=== PATIENT | male | born 1940 | race Caucasian/White ===

== ENCOUNTER 2023-09-06 14:07 | Emergency (ER) | payer OTHER, SELFPAY ==
[2023-09-06 14:09] VITALS: BP 182/90
[2023-09-06 14:40] LABS: % Basophils 0.6 % (0-2); % Eosinophils 2.6 % (0-6); % Immature Granulocytes 0.4 % (0-0.5); % Lymphocytes 26.7 % (20.5-51.1); % Monocytes 7.4 % (1.7-9.3); % Neutrophils 62.3 % (42.2-75.2); Absolute Eosinophils 0.2 10^3/uL (0-0.7); Absolute Lymphocytes 1.8 10^3/uL (1.2-3.4); Absolute Monocytes 0.5 10^3/uL (0.1-0.6); Absolute Neutrophils 4.3 10^3/uL (1.4-6.5); Hematocrit 44.1 % (39.0-52.0); Hemoglobin 15.6 g/dL (13.0-18.0); Mean Corp Hgb Conc. 35.4 g/dL (33.0-37.0); Mean Corpuscular Hgb 30.8 pg (27.0-31.0); Mean Corpuscular Volume 87.2 fL (80.0-94.0); Nucleated Red Blood Cells % 0 % (-); Platelet Count 137 10^3/uL (130-400); Red Blood Cell Count 5.06 10^6/uL (4.70-6.10); Red Cell Dist. Width 12.3 % (11.5-14.5); White Blood Cell Count 6.9 10^3/uL (4.8-10.8)
[2023-09-06 14:46] LABS: ALT (SGPT) 28 U/L (0-50); AST (SGOT) 26 U/L (17-59); Albumin 4.2 g/dl (3.5-5.0); Alkaline Phosphatase 85 U/L (38-126); Blood Urea Nitrogen 17 mg/dl (9-20); Calcium 9.7 mg/dl (8.4-10.2); Carbon Dioxide 27 mmol/L (22-30); Chloride 102 mmol/L (98-107); Glucose 146 mg/dl (70-99); PT 15.3 Sec (11.4-14.6); Potassium 4.6 mmol/L (3.5-5.1); Sodium 138 mmol/L (135-145); Total Bilirubin 1.6 mg/dl (0.2-1.3); Total Protein 6.4 g/dl (6.3-8.2); eGFR > 60.00
[2023-09-06 14:58] LABS: Troponin I < 0.012 ng/ml
--- NOTE | 2023-09-06 17:16 | ED.GENMED ---
History of Present Illness
General
Chief Complaint: Heart Rate Problem
Time Seen by Provider: 09/06/23 17:16
Travel History
Have you had any contact with someone who has COVID-19?: No
Do you have any symptoms of coronavirus? Fever > 100 degrees, chills, cough, shortness of breath, sore throat, loss of taste or smell, muscle aches, or headache?: No
History of Present Illness
History of Present Illness:
HPI: 8d of anxious feeling - then checks his pulse and feels it to be irregular at times. Saw Dr. Felix a week ago - was felt to be PVCs. Feels different than AFib. One of his main symptom and concern is his inability to sleep. He cares
for his with dementia at home.
EXAM:
GENERAL: Well appearing in no distress
HEENT: Moist oral mucosa
CARDIOVASCULAR: No murmurs, normal heart rate, regular rhythm but there is frequent ectopy, No chest wall tenderness
PULMONARY: No respiratory distress, breath sounds are clear and equal
ABDOMEN: Soft with no peritoneal signs, no tenderness
NEUROLOGIC: Excellent strength all extremities, no coordination deficits
PSYCHIATRIC: Appropriate mental status, normal insight and judgement
EXTREMITIES: Nontender, no edema, moves all extremities equally
SKIN: No rash, no lesions
TIME OF INITIAL ENCOUNTER: 5:30 PM
NUMBER AND COMPLEXITY OF PROBLEMS ADDRESSED AT THE ENCOUNTER
� Chronic conditions affecting care: CAD with coronary stent, A-fib, high blood pressure, hyperlipidemia, has had KAETON
� Acute Exacerbation and/or Progression of Chronic Illness: This is an acute but recurring problem
� Differential Diagnosis includes: Recurrence of A-fib, electrolyte abnormality, PACs/PVCs, high-grade AV block
AMOUNT AND/OR COMPLEXITY OF DATA TO BE REVIEWED AND ANALYZED
� I performed an independent evaluation of and my interpretation is:
EKG: Sinus sinus 60, leftward axis deviation, no acute ST abnormality
CT:
X-rays:
Laboratory Studies: CBC, chemistries other than total bili are unremarkable, troponin negative
Other:
� Review of other/old records: I reviewed records, the patient had an ablation in February 2022
� Clinical information was obtained by an independent historian: Spoke to son at bedside
� Prescriptions/Medications Considered but not given:
� Further testing considered but not performed:
RISK OF COMPLICATIONS AND/OR MORBIDITY OR MORTALITY OF PATIENT MANAGEMENT
� Social determinants of health affecting care: Lives at home, cares for his with dementia
� Discussion with other providers: I notified Dr. Rendon of the patient's presentation
� Escalation of care including admission/observation vs risk of discharge considered: His EKG is sinus. He is not in A-fib. Regarding sleep I also recommended that he try [id number] doxylamine. He does have frequent
atrial ectopy on the monitor but is well-appearing at time of discharge.
Past History
Past History
ED Past Medical History: Arrthythmia, CAD, HTN, Hypercholesterolemia and Other (Depression)
Social History
Tobacco: Non-smoker
Phy Exam
Physical Exam
Physical Exam:
See HPI
Course
Orders/Labs/Results
Orders:
Orders
09/06/23
Electrocardiogram (*1) Stat
Comment: DONE
09/06/23 14:21
Complete Blood Count/With Diff Urgent
Comprehensive Metabolic Panel Urgent
PT/INR [Prothrombin Time] Urgent
Troponin I Urgent
Abnormal Lab Results
09/06/23
14:21
PT 15.3 H Sec
(11.4-14.6)
Glucose 146 H mg/dl
(70-99)
Total Bilirubin 1.6 H mg/dl
(0.2-1.3)
09/06/23 14:21
09/06/23 14:21
Vital Signs
Initial and Last Documented VS:
Initial Vital Signs
Temp Pulse Resp BP Pulse Ox
98.4 F 62 18 182/90 98
09/06/23 14:09/06/23 14:09/06/23 14:09/06/23 14:09/06/23 14:09
Last Documented Vital Signs
Temp Pulse Resp BP Pulse Ox
98.4 F 62 18 182/90 98
09/06/23 14:09 09/06/23 14:09/06/23 14:09/06/23 14:09/06/23 14:09
*Critical Care Note
Total Time (30-74mins, 75-104mins- exclusive of procedures): Not Applicable
ED Attending Note
-
Portions of this chart may have been created with voice recognition software.� Occasional wrong word or��sound alike� substitutions may have occurred due to the inherent limitations of voice recognition software.
Discharge Plan
Departure
Patient Disposition: Home (Routine Discharge)
Date of Disposition: 09/06/23
Time of Disposition: 17:49
Patient with high blood pressure during this ER visit?: Yes
Discharge Problem:
Premature atrial contraction
Instructions: Palpitations (DC)
Prescriptions:
No Action
metoprolol tartrate 50 MG tablet
50 mg PO BID
cholecalciferol (vitamin D3) 2,000 UNITS tablet
2,000 units PO DAILY
atorvastatin 10 mg Tablet
20 mg PO HS
cyanocobalamin (vitamin B-12) [Vitamin B-12] 500 mcg Tablet
500 mcg PO DAILY
Eliquis 5 mg Tablet
5 mg PO BID
Activity Restrictions/Additional Instructions:
I notified the bath house attendant on-call, Dr. Fernandez said that he will try to get you in for reassessment soon. Regarding sleep, I recommend that you try [id number] Unisom�the kind with doxylamine as the active ingredient.
Interventions
Interventions:
*Risk Screen - Suicide Last Done: 09/06/23 14:09
*General Assessment Last Done: 09/06/23 14:09
*Neglect/Abuse Screening Last Done: 09/06/23 14:09
*ED COVID-19 Vaccine History Last Done: 09/06/23 14:09
Discharge Date and Time
Print Language: GERMAN
[2023-09-06 18:04] VITALS: BP 163/86
== END 2023-09-06 18:23 | disposition home or self-care (01) ==
LOC: EMR 14:07
PROVIDERS: Student in an Organized Health Care Education/Training Program; EMERGENCY PHYSICIAN Emergency Medicine
DX: I49.1 Atrial premature depolarization (principal); I25.10 Atherosclerotic heart disease of native coronary artery without angina pectoris; I48.91 Unspecified atrial fibrillation; I10 Essential (primary) hypertension; E78.00 Pure hypercholesterolemia, unspecified; F32.A Depression, unspecified; Z79.01 Long term (current) use of anticoagulants
CPT/HCPCS: 99283; 80053; 84484; 85025; 85610; 93005

== ENCOUNTER → 2023-10-23 14:06 | Outpatient (REF) | payer OTHER, SELFPAY | LOC: HWRCS 14:06 | PROVIDERS: ATTENDING PHYSICIAN Nurse Practitioner; FAMILY PHYSICIAN Nurse Practitioner Gerontology | DX: I10 Essential (primary) hypertension (principal); R00.2 Palpitations | CPT/HCPCS: 93306 ==

== ENCOUNTER 2024-06-15 22:46 | Emergency (ER) | payer OTHER, SELFPAY ==
[2024-06-15 22:56] VITALS: BP 160/90
[2024-06-16 02:48] VITALS: BP 153/73; BMI 34.1
[2024-06-16 03:00] VITALS: BP 137/79
--- NOTE | 2024-06-16 03:06 | ED.GENMED ---
History of Present Illness
General
Chief Complaint: Cough
Source: patient
Exam Limitations: none
Time Seen by Provider: 06/16/24 03:02
History of Present Illness
History of Present Illness:
See MDM
Past History
Past History
ED Past Medical History: Arrthythmia, CAD, HTN, Hypercholesterolemia and Other (Depression)
ED Past Surgical History: Cardiac (Ablation)
Social History
Tobacco: Non-smoker
Phy Exam
Physical Exam
Physical Exam:
See MDM
Course
Orders/Labs/Results
Orders:
Orders
06/15/24 22:59
Chest [CR Chest - 2 Views ] Urgent
Comment:
Reason For Exam: COUGH WITH LEFT LOWER RIB PAIN
06/16/24 02:57
COVID-19 Antigen Urgent
Source: Nasal Swab
Influenza A+B Rapid Molecular Urgent
KUSH Source: Nasal Swab
Specimen Description:
06/16/24 03:05
Azithromycin [Zithromax] 500 mg PO NOW STA
Dexamethasone Pf [Decadron] 10 mg PO NOW STA
Ipratropium/Albuterol Sulfate [Duoneb] 3 ml INH R NOW STA
06/16/24 03:06
Electrocardiogram (*1) Urgent
Reason for Study: Shortness of Breath
EKG- Treatment ONCE
06/16/24 03:14
Complete Blood Count/With Diff Urgent
Comprehensive Metabolic Panel Urgent
06/16/24 03:15
Troponin I Urgent
Abnormal Lab Results
06/16/24
03:14
Plt Count 128 L 10^3/uL
(130-400)
Absolute Neuts (auto) 6.7 H 10^3/uL
(1.4-6.5)
Absolute Lymphs (auto) 0.8 L 10^3/uL
(1.2-3.4)
Absolute Monos (auto) 0.8 H 10^3/uL
(0.1-0.6)
Neutrophils % 80.2 H %
(42.2-75.2)
Lymphocytes % 9.1 L %
(20.5-51.1)
Glucose 136 H mg/dl
(70-99)
Total Bilirubin 2.3 H mg/dl
(0.2-1.3)
06/16/24 03:14
06/16/24 03:14
Vital Signs
Initial and Last Documented VS:
Initial Vital Signs
Temp Pulse Resp BP Pulse Ox
98.2 F 98 22 160/90 98
06/15/24 22:56 06/15/24 22:56 06/15/24 22:56 06/15/24 22:56 06/15/24 22:56
Last Documented Vital Signs
Temp Pulse Resp BP Pulse Ox
98.2 F 91 18 137/79 97
06/15/24 22:56 06/16/24 04:00 06/16/24 04:00 06/16/24 03:00 06/16/24 04:00
MDM/Problems Addressed
Differential Diagnosis Includes:
HPI and MDM Narrative:
84-year-old male presenting with cough and shortness of breath since yesterday. This is associated with mild wheeze. He denies sick contacts. On exam, he does have a slight expiratory wheeze on exam. Chest x-ray was done prior to my exam and
appears clear. Given his age and complaint, will obtain EKG and basic blood work. Will give DuoNeb and Decadron
Physical exam
General: Well appearing and non-toxic
HEENT: protecting airway
Neck: appears supple
CV: No evidence of cyanosis. Regular rate and rhythm
Resp: No accessory muscle use. Slight expiratory wheeze
Abd: Non-distended
Extremities: No deformities
Neuro: alert
Psych: Normal affect
Skin: Intact
Problems Addressed including Acute and Chronic Conditions affecting care:
1. Bronchitis
Acuity: acute
Prognosis: stable
Details: Will start steroids and DuoNebs.
2. Shortness of breath
Acuity: acute
Prognosis: stable
Details: Will obtain EKG and troponin
Updates
On reevaluation, patient sleeping comfortably. Chest x-ray clear. EKG and troponin negative. Patient found to have a flu. Patient is in the Tamiflu window and wants to give a trial
Differential Diagnosis (but not limited to): Bronchitis, pneumonia, viral syndrome
Testing considered: D-dimer
Drug therapy (if applicable): OTC meds, please see d/c instruction regarding Rx drugs
Amount and/or Complexity of Data Reviewed
Clinical info obtained from: Patient
External data reviewed: N/A
Labs I independently reviewed (but not limited to): Troponin normal
Radiology: X-ray independently reviewed: Chest x-ray clear
Pulse Ox: not hypoxic
EKG independently reviewed: N/A
[employer]: Sinus rhythm
Critical Care: N/A
Risk of Complication:
Social Determinants of health: Good social support
Discussed with other providers: N/A
Escalation of Care includes Admit/Obs: After being observed in the Emergency Department, pt stable for discharge.
Occasional wrong word or 'sound a like' substitutions may have occurred due to the inherent limitations of voice recognition software. Read the chart carefully and recognize, using context, where substitutions have occurred.
*Critical Care Note
Total Time (30-74mins, 75-104mins- exclusive of procedures): Not Applicable
ED Attending Note
-
Portions of this chart may have been created with voice recognition software.� Occasional wrong word or��sound alike� substitutions may have occurred due to the inherent limitations of voice recognition software.
Discharge Plan
Departure
Patient Disposition: Home (Routine Discharge)
Date of Disposition: 06/16/24
Time of Disposition: 05:30
Patient with high blood pressure during this ER visit?: Yes
Discharge Problem:
Influenza A
Instructions: Flu in adults - Discharge instructions, BLOOD PRESSURE
Prescriptions:
New
albuterol sulfate 90 mcg/actuation HFA aerosol inhaler
2 puff inhalation Q6H PRN (Reason: shortness of breath or wheezing) Qty: 8.5 0RF
oseltamivir [Tamiflu] 75 mg capsule
75 mg PO BID 5 Days Qty: 10 0RF
No Action
metoprolol tartrate 50 MG tablet
50 mg PO BID
cholecalciferol (vitamin D3) 2,000 UNITS tablet
2,000 units PO DAILY
atorvastatin 10 mg Tablet
20 mg PO HS
cyanocobalamin (vitamin B-12) [Vitamin B-12] 500 mcg Tablet
500 mcg PO DAILY
Eliquis 5 mg Tablet
5 mg PO BID
Activity Restrictions/Additional Instructions:
Please return for any worsening symptoms.
You may return at any time if you have further concerns.
Please follow up with your doctor at the first available appointment, preferably this week.
Thank you for choosing [facility].
Interventions
Interventions:
*Risk Screen - Suicide Last Done: 06/15/24 22:56
*General Assessment Last Done: 06/16/24 02:44
*Neglect/Abuse Screening Last Done: 06/15/24 22:56
ED- Fall Risk Assessment Last Done: 06/16/24 03:03
*ED COVID-19 Vaccine History Last Done: 06/16/24 02:33
ED- Pulmonary Assessment Last Done: 06/16/24 02:44
Discharge Date and Time
Print Language: AUSTRALIAN
[2024-06-16] MEDS: ZITHROMAX 500 MG PO (03:12)
[2024-06-16] MEDS: DECADRON 10 MG PO (03:13)
[2024-06-16] MEDS: DUONEB 3 ML INH (03:13)
[2024-06-16 03:35] LABS: % Basophils 0.4 % (0-2); % Immature Granulocytes 0.2 % (0-0.5); % Lymphocytes 9.1 % (20.5-51.1); % Monocytes 9.1 % (1.7-9.3); % Neutrophils 80.2 % (42.2-75.2); Absolute Eosinophils 0.1 10^3/uL (0-0.7); Absolute Lymphocytes 0.8 10^3/uL (1.2-3.4); Absolute Monocytes 0.8 10^3/uL (0.1-0.6); Absolute Neutrophils 6.7 10^3/uL (1.4-6.5); Hemoglobin 15.6 g/dL (13.0-18.0); Mean Corp Hgb Conc. 34.7 g/dL (33.0-37.0); Mean Corpuscular Hgb 30.7 pg (27.0-31.0); Mean Corpuscular Volume 88.6 fL (80.0-94.0); Mean Platelet Volume 10.2 fL (7.4-10.4); Nucleated Red Blood Cells % 0 % (-); Platelet Count 128 10^3/uL (130-400); Red Blood Cell Count 5.08 10^6/uL (4.70-6.10); Red Cell Dist. Width 12.1 % (11.5-14.5); White Blood Cell Count 8.3 10^3/uL (4.8-10.8)
[2024-06-16 03:40] LABS: ALT (SGPT) 28 U/L (0-50); AST (SGOT) 25 U/L (17-59); Albumin 4.2 g/dl (3.5-5.0); Alkaline Phosphatase 93 U/L (38-126); Blood Urea Nitrogen 20 mg/dl (9-20); Calcium 9.4 mg/dl (8.4-10.2); Carbon Dioxide 25 mmol/L (22-30); Chloride 105 mmol/L (98-107); Estimated Creatinine Clearance 68 ml/min; Glucose 136 mg/dl (70-99); Potassium 4.7 mmol/L (3.5-5.1); Sodium 138 mmol/L (135-145); Total Bilirubin 2.3 mg/dl (0.2-1.3); Total Protein 6.4 g/dl (6.3-8.2); eGFR > 60.00
[2024-06-16 03:42] LABS: COVID-19 Antigen Negative (Negative)
[2024-06-16 03:49] LABS: Troponin I < 0.012 ng/ml
[2024-06-16 04:01] VITALS: BP 145/73
[2024-06-16 05:00] VITALS: BP 105/48
== END 2024-06-16 05:57 | disposition home or self-care (01) ==
LOC: EMR 22:46
PROVIDERS: EMERGENCY PHYSICIAN Student in an Organized Health Care Education/Training Program; FAMILY PHYSICIAN Nurse Practitioner Gerontology
DX: J10.1 Influenza due to other identified influenza virus with other respiratory manifestations (principal); R07.81 Pleurodynia; Z11.52 Encounter for screening for COVID-19; I25.10 Atherosclerotic heart disease of native coronary artery without angina pectoris; I10 Essential (primary) hypertension; E78.00 Pure hypercholesterolemia, unspecified; F32.A Depression, unspecified; Z79.01 Long term (current) use of anticoagulants
CPT/HCPCS: 99283; 94640; 71046; 80053; 84484; 85025; 87502; 87811; 93005

== ENCOUNTER → 2024-10-22 15:12 | Outpatient (REF) | payer OTHER, SELFPAY | LOC: HWRAD 15:12 | PROVIDERS: ATTENDING PHYSICIAN Specialist | DX: Q61.00 Congenital renal cyst, unspecified (principal) | CPT/HCPCS: 76775 ==

== ENCOUNTER 2025-02-21 16:47 | Inpatient (IN) | payer OTHER, SELFPAY ==
[2025-02-20 17:45] VITALS: BP 188/103
[2025-02-20 19:07] VITALS: BMI 29.9
[2025-02-20 19:09] VITALS: BP 171/93
[2025-02-20] MEDS: CARAFATE SUSPENSION 1 GM PO (19:10)
[2025-02-20 19:21] LABS: Hematocrit 47.3 % (39.0-52.0); Hemoglobin 16.9 g/dL (13.0-18.0); Mean Corp Hgb Conc. 35.7 g/dL (33.0-37.0); Mean Corpuscular Volume 86.9 fL (80.0-94.0); Nucleated Red Blood Cells % 0 % (-); Platelet Count 145 10^3/uL (130-400); Red Cell Dist. Width 12.2 % (11.5-14.5)
[2025-02-20 19:43] LABS: ALT (SGPT) 32 U/L (0-50); AST (SGOT) 26 U/L (17-59); Albumin 4.6 g/dl (3.5-5.0); Alkaline Phosphatase 108 U/L (38-126); Blood Urea Nitrogen 28 mg/dl (9-20); Calcium 11.2 mg/dl (8.4-10.2); Carbon Dioxide 28 mmol/L (22-30); Chloride 100 mmol/L (98-107); Estimated Creatinine Clearance 52 ml/min; Glucose 171 mg/dl (70-99); Lipase 162 U/L (23-300); Potassium 4.5 mmol/L (3.5-5.1); Sodium 137 mmol/L (135-145); Total Protein 7.0 g/dl (6.3-8.2); eGFR > 60.00
[2025-02-20] MEDS: NSS 1000 IV (20:02)
[2025-02-20 20:15] LABS: Urine Character Clear (Clear)
[2025-02-20 20:49] LABS: Urine White Cell 0-2 /HPF (0-5)
[2025-02-20 22:13] VITALS: BP 211/81
[2025-02-20] MEDS: ZOFRAN 4 MG IV (22:18)
--- NOTE | 2025-02-20 23:14 | ED.GENMED ---
History of Present Illness
General
Chief Complaint: Abdominal Symptoms
Source: patient and family
Exam Limitations: none
Time Seen by Provider: 02/20/25 18:22
History of Present Illness
History of Present Illness:
Note:
CHIEF COMPLAINT(S)
Epigastric pain and vomiting.
HISTORY OF PRESENT ILLNESS
The patient is an 84-year-old male who presents with epigastric pain and vomiting. The symptoms began yesterday after consuming sausages, which the patient suspected did not agree with him. He describes having heartburn-like symptoms, stating �it
was burning,� accompanied by persistent discomfort in the stomach area. He experienced these symptoms throughout the night and into the following day, noting he �sat in one spot almost from nine at night until nine the next morning.� The patient
attempted to alleviate his symptoms with hqce-rpb-erysyky medications and a fountain Coke, which temporarily diminished the pain from a self-described level of 9 to 5 but did not resolve it, and he vomited afterward. He sought initial care at an
urgent care facility ([facility]) where he was noted to have elevated white blood cell count and possible kidney concerns, prompting a transfer to the current facility for further evaluation. The patient reports a history of a significant kidney
stone episode approximately four years ago, where a sizable stone required surgical intervention. Currently, his symptoms include nausea, decreased from earlier, and a sensation of persistent fullness in the stomach. Patient states he has not taken
his medications in 2 days. Specifically has not taken his Eliquis or metoprolol.
Additional historians
Daughter at bedside stating he has not been able to hold down fluids at all
PAST MEDICAL AND SURGICAL HISTORY
The patient has a history of a kidney stone requiring surgical removal approximately four years ago.
CHRONIC MEDICAL CONDITIONS SIGNIFICANTLY AFFECTING CARE
The patient previously underwent surgery for a large kidney stone.
REVIEW OF SYSTEMS
- Abdominal: Reports persistent discomfort in the abdominal region, specifically in the epigastric area. Severe heartburn-like symptoms were initially noted.
- Gastrointestinal: Vomiting following the consumption of food and drink; feels persistent nausea that fluctuates in severity.
- General: Reports significant discomfort and enduring pain in the epigastric region lasting over 24 hours.
PHYSICAL EXAM
General: Alert, no acute distress.
Skin: Warm, dry.
Head: Normocephalic, atraumatic.
Neck: Supple, trachea midline.
Eyes, Ears, Nose, Mouth, and Throat: Oral mucosa moist.
Cardiovascular: Normal peripheral perfusion, No edema.
Respiratory: Respirations are non-labored.
Gastrointestinal: Abdomen soft, with discomfort in the whole stomach area, but no specific tenderness or distension noted. mildly distended
Back: Normal range of motion, Normal alignment.
Musculoskeletal: Normal range of motion, normal strength.
Neurological: Alert and oriented to person, place, time, and situation, No focal neurological deficit observed.
Psychiatric: Cooperative, appropriate mood & affect.
PROBLEM LIST
- Acute: Epigastric pain, Vomiting, Nausea
- Chronic: History of significant kidney stone
PLAN
- Conduct a CT scan of the abdomen to evaluate underlying abdominal issues, including potential gallbladder or pancreatic concerns.
- Administer intravenous fluids to ensure adequate hydration.
- Consider prescribing an oral solution to coat and soothe the esophagus and stomach, pending the patients ability to tolerate oral intake.
DIFFERENTIAL DIAGNOSIS
The Differential Diagnosis includes, in no particular order and is not limited to:
1. Acute gastritis
2. Gastroesophageal reflux disease (GERD)
3. Peptic ulcer disease
4. Cholecystitis
5. Pancreatitis
6. Gastroenteritis
7. Esophagitis
8. Biliary colic
9. Food poisoning
10. Non-ulcer dyspepsia
Disposition:
SUMMARY OF ENCOUNTER
The patient, an 84-year-old male, presented to the emergency department with intractable epigastric discomfort and vomiting, unable to retain fluids. Findings included thickening of the duodenum, suggestive of duodenitis, and a fluid-filled stomach.
On reassessment, the patient continued to vomit and could not tolerate oral liquids. Management included intravenous fluids with consideration of admission for continued hydration and further evaluation. Endoscopic assessment may be necessary if
symptoms persist.
DISPOSITION
Admit.
ASSESSMENT
Suspected duodenitis causing epigastric pain and vomiting, possibly viral in nature.
REASSESSMENT
The patient continued to vomit and was unable to tolerate oral liquids.
PLAN
Admission for continued intravenous fluids and possibly an endoscopy to further evaluate persistent symptoms and duodenal thickening.
MEDICAL DECISION MAKING
-Complexity of Data Reviewed: Chronic conditions affecting care (history of significant kidney stone). Differential Diagnosis includes: Acute gastritis, Gastroesophageal reflux disease (GERD), Peptic ulcer disease, Cholecystitis, Pancreatitis,
Gastroenteritis, Esophagitis, Biliary colic, Food poisoning, Non-ulcer dyspepsia.
-Data:
Category 1: My independent interpretation of the imaging suggests duodenal thickening indicative of possible duodenitis and a fluid-filled stomach.
-Risk: Prescription medication was not prescribed at this time due to ongoing vomiting and inability to tolerate oral intake.
DIAGNOSIS
1. Duodenitis (K29.80)
2. Vomiting (R11.10)
3. uncontrolled hypertension
Will give IV dose of Lopressor as he has not taken his blood pressure medications in 2 days. Also has not taken his anticoagulant
Past History
Past History
ED Past Medical History: Arrthythmia, CAD, HTN, Hypercholesterolemia and Other (Depression)
ED Past Surgical History: Cardiac (Ablation)
Social History
Tobacco: Non-smoker
Phy Exam
Physical Exam
Physical Exam:
.
Course
Orders/Labs/Results
Orders:
Orders
02/20/25 17:48
EKG [Electrocardiogram (*1)] Urgent
Reason for Study: Chest Pain
EKG- Treatment ONCE
02/20/25 18:55
CT Abd/Pel (IV only)-DH only Urgent
Comment:
Reason For Exam: mid abd pain, leukocytosis
02/20/25 18:56
Sucralfate Suspension [Carafate Suspension] 1 gm PO NOW STA
02/20/25 19:07
Complete Blood Count/With Diff Urgent
Comprehensive Metabolic Panel Urgent
Lactic Acid Urgent
Lipase Urgent
02/20/25 19:53
0.9% Sodium Chloride 1000 ml [Nss] 1,000 ml IV BOLUS
02/20/25 20:02
Urinalysis Reflex To Culture Urgent
Date Specimen was Collected: 02/20/25
Time Specimen was Collected: 20:01
Urine Microscopic Reflex Cult Urgent
02/20/25 22:17
Ondansetron Injectable [Zofran] 4 mg .ROUTE .[facility]
02/20/25 22:18
Ondansetron Injectable [Zofran] 4 mg IV NOW STA
02/20/25 23:14
Pantoprazole [Protonix IV] 80 mg IV NOW STA
02/20/25 23:24
Metoprolol [Lopressor] 5 mg IV NOW STA
02/20/25 23:25
Cardiac Monitoring- Treatment ONCE
02/20/25 23:45
Dextrose 5%/0.45%Sodchl 500 ml [D5/0.45%NaCl] 500 ml IV 100 mls/hr
Abnormal Lab Results
02/20/25 02/20/25
19:07 20:02
WBC 13.4 H 10^3/uL
(4.8-10.8)
MCH 31.1 H pg
(27.0-31.0)
Absolute Neuts (auto) 11.3 H 10^3/uL
(1.4-6.5)
Absolute Monos (auto) 0.7 H 10^3/uL
(0.1-0.6)
Neutrophils % 84.4 H %
(42.2-75.2)
Lymphocytes % 9.5 L %
(20.5-51.1)
BUN 28 H mg/dl
(9-20)
Glucose 171 H mg/dl
(70-99)
Calcium 11.2 H mg/dl
(8.4-10.2)
Total Bilirubin 3.5 H mg/dl
(0.2-1.3)
Urine Ketones 2+ A
(Negative)
Ur Occult Blood Reflex 4+ A
(Negative)
Urine RBC 11-15 A /HPF
(0-2)
Urine Bacteria (Reflex) Few A
(Negative)
Urine Albumin (Reflex) 2+ A
(Neg - Trace)
02/20/25 19:07
02/20/25 19:07
Vital Signs
Initial and Last Documented VS:
Initial Vital Signs
Temp Pulse Resp BP Pulse Ox
98.6 F 70 18 188/103 97
02/20/25 17:45 02/20/25 17:45 02/20/25 17:45 02/20/25 17:45 02/20/25 17:45
Last Documented Vital Signs
Temp Pulse Resp BP Pulse Ox
98.6 F 72 18 211/81 98
02/20/25 17:45 02/20/25 22:21 02/20/25 22:21 02/20/25 22:13 02/20/25 23:19
*Pulse Oximetry
SaO2: 98
Oxygen Mode of Delivery: Room air
Patient hypoxic: no
*EKG
Interpreted by ED Provider?: Yes
Interpretation: normal
Rate: normal
Rhythm: sinus and PVC's
[place]: normal axis
Interval: normal interval
Ischemia: no ischemia
*[employer] Interpretation
Rate: normal
Interpretation: normal
Rhythm: sinus
*Critical Care Note
Total Time (30-74mins, 75-104mins- exclusive of procedures): Not Applicable
ED Attending Note
-
Portions of this chart may have been created with voice recognition software.� Occasional wrong word or��sound alike� substitutions may have occurred due to the inherent limitations of voice recognition software.
Discharge Plan
Departure
Patient Disposition: Admit
Date of Disposition: 02/20/25
Time of Disposition: 23:15
Admit to: Med/Surg
Presentation/result/management discussed w/ accepting MD/DO: Hospitalist
Discharge Problem:
Duodenitis, Intractable nausea and vomiting
Prescriptions:
No Action
metoprolol tartrate 50 MG tablet
50 mg PO BID
cholecalciferol (vitamin D3) 2,000 UNITS tablet
2,000 units PO DAILY
atorvastatin 10 mg Tablet
20 mg PO HS
cyanocobalamin (vitamin B-12) [Vitamin B-12] 500 mcg Tablet
500 mcg PO DAILY
Eliquis 5 mg Tablet
5 mg PO BID
albuterol sulfate 90 mcg/actuation HFA aerosol inhaler
2 puff inhalation Q6H PRN (Reason: shortness of breath or wheezing) Qty: 8.5 0RF
oseltamivir [Tamiflu] 75 mg capsule
75 mg PO BID 5 Days Qty: 10 0RF
Referrals:
NONE,* [Family Provider, Internal Medicine]
Interventions
Interventions:
*Risk Screen - Suicide Last Done: 02/20/25 17:45
*Neglect/Abuse Screening Last Done: 02/20/25 17:45
OI-Lundfj-Vzycnpmbcv Assessment Last Done: 02/20/25 19:39
Discharge Date and Time
Print Language: UKRAINIAN
[2025-02-20] MEDS: PROTONIX IV 80 MG IV (23:33)
[2025-02-20 23:34] VITALS: BP 151/74
[2025-02-20] MEDS: LOPRESSOR 5 MG IV (23:34)
[2025-02-21] VITALS (7 sets, daily range): BP systolic 151–170; BP diastolic 71–87; BMI 31.4; BMI 29.9
--- NOTE | 2025-02-21 00:31 | HPS.HSE ---
Family Physician
-
Family Physician: * NONE
Chief Complaint
-
Abd Pain, Nausea
History of Present Illness
Patient is an 84y M with PMH significant for ASCVD, A-Fib and hypertension who presents to ED complaining of abdominal pain and N/V. Patient states that his symptoms started on Monday AM - shortly after eating sausage and eggs for breakfast.
Patient had the sensation that the food was 'stuck' in the epigastric area and would not pass. He had epigastric pain and nausea. He reports severe burning pain in the epigastrum / chest. Patient took some TUMS with minimal relief. He attempted
to induce emesis - initially without success. He states that she has had similar symptoms in the past - again with sensation of food being 'stuck' - and has alleviated his symptoms by inducing emesis.
His symptoms persisted all day Monday and throughout the night. He had little if anything to eat / drink.
He had an episode of emesis today a short time after drinking some Coke in an attempt to improve his symptoms. Emesis was gastric juices / soda - not appearing consistent with undigested food.
Patient presented to an Urgent Care for evaluation and was referred to the ED.
He had an additional episode of emesis en route to the ED and again here in the ED.
At present, he is lying in R lateral recumbent position and feels the best that he has in the past 2 days.
Medical History
Past Medical History
Past Medical History: Reports Other
Additional Past Medical History:
ASCVD
A-Fib s/p Ablation
Hypertension
BRADLEY
Nephrolithiasis
Insomnia
Past Surgical History: Reports Other
Additional Past Surgical History:
PTCA with Stent (x 2)
PVI Ablation
Left Ureteral Stent / Lithotripsy
T&A
Social History
Tobacco: Former Smoker (Quit in 1975)
Alcohol: None
Drug: None
Family History
Family History: Not pertinent
Allergies / Home Medications
Allergies reflects when Allergies were last updated in [facility].
Home Medications with original date entered in [facility]
Allergy/Medication List:
Allergies
Allergy/AdvReac Type Severity Reaction Status Date / Time
No Known Allergies Allergy Verified 06/15/24 22:59
Home Medications
metoprolol tartrate 50 mg tablet 50 mg PO TID Blood pressure 03/17/21
apixaban 5 mg tablet (Eliquis) 5 mg PO BID 01/17/22
atorvastatin 20 mg tablet 20 mg PO HS 02/21/25
lisinopril 40 mg tablet 40 mg PO DAILY 02/21/25
quetiapine 25 mg tablet 25 mg PO HSPRN PRN Sleep 02/21/25
Review of Systems
-
History Source: Patient
A 12 point ROS was completed and negative except as noted: Yes
Constitutional: Denies Fever or Chills
Respiratory: Denies Cough or Trouble Breathing
Cardiac: Denies Chest Pain or Palpitations
Abdomen/GI: Reports Abdominal Pain, Nausea and Vomiting; Denies Diarrhea, Constipated, Bloody Stools or Black Stools
: Denies Dysuria or Flank Pain
Musculoskeletal: Denies Joint Pain or Edema
Neurological: Denies Dizzy or Headache
Psych: Denies Depression or Anxiety
Physical Exam
Vital Signs
Vital Signs
Temp Pulse Resp BP Pulse Ox
98.6 F 72 18 165/84 98
02/20/25 17:45 02/20/25 23:34 02/20/25 22:21 02/21/25 00:00 02/20/25 23:19
Physical Exam
General: Other (84y M in mild distress due to pain / nausea.)
HEENT: Moist mucous membranes and PERRLA
Respiratory: Clear; No Wheezes, Rales or Rhonchi
Cardiac: S1/S2 and Regular Rhythm; No Murmur
GI: Soft, Non Tender, Non Distended and Normal Bowel Sounds
Musculoskeletal: No Clubbing, No Cyanosis and No Edema
Neuro: AO x 3
Laboratory Results
-
02/20/25 19:07
02/20/25 19:07
Laboratory Results
Lactic Acid 1.4 mmol/L (0.7-2.0) 02/20/25 19:07
Total Bilirubin 3.5 mg/dl (0.2-1.3) H 02/20/25 19:07
AST 26 U/L (17-59) 02/20/25:
ALT 32 U/L (0-50) 02/20/25:
Alkaline Phosphatase 108 U/L (38-126) 02/20/25 19:
Lipase 162 U/L (23-300) 02/20/25 19:07
Impression/Plan
-
A/P: Patient is an 84y M with PMH significant for ASCVD, A-Fib and HTN who presents to ED complaining of two days of abdominal pain and nausea.
Duodenitis
- Observe overnight for further evaluation and treatment.
- CT done in the ED this evening shows wall thickening in the first segment of the duodenum - ? acid-mediated versus mechanical from prior food impaction?
- IV PPI BID.
- Supportive care with IVFs, pain control, antiemetics, etc.
- GI evaluation in the AM for additional recommendations / possible endoscopic exam.
- Patient reports prior instances of food feeling 'stuck' in the epigastric region. No prior EGD.
- Follow for clinical improvement.
ASCVD
A-Fib s/p Ablation
- Stable. Continue statin, metoprolol, etc.
- Hold Eliquis acutely for any possible procedures, etc (patient states that he has taken no meds in 2 days due to current symptoms).
Benign Hypertension
- BP significantly elevated in the ED. Likely due to acute discomfort and lack of meds as noted above.
- Resume usual BP med regimen and follow for improvement.
- Continue efforts at pain / nausea control.
- IV hydralazine as needed for very high BP.
DVT Prophylaxis: SCDs while Eliquis on hold.
Code Status: Full
[2025-02-21] MEDS: NSS 1000 IV ×3 (02:19→17:53)
[2025-02-21 06:17] LABS: Glucose - Point of Care 143 mg/dl (70-99)
[2025-02-21 07:26] LABS: Hematocrit 42.9 % (39.0-52.0); Hemoglobin 14.8 g/dL (13.0-18.0); Mean Corp Hgb Conc. 34.5 g/dL (33.0-37.0); Mean Corpuscular Volume 88.5 fL (80.0-94.0); Platelet Count 132 10^3/uL (130-400); Red Cell Dist. Width 12.2 % (11.5-14.5)
[2025-02-21 07:47] LABS: Glucose - Point of Care 147 mg/dl (70-99)
[2025-02-21 07:55] LABS: Blood Urea Nitrogen 23 mg/dl (9-20); Calcium 9.6 mg/dl (8.4-10.2); Carbon Dioxide 25 mmol/L (22-30); Chloride 108 mmol/L (98-107); Estimated Creatinine Clearance 61 ml/min; Glucose 143 mg/dl (70-99); Potassium 4.5 mmol/L (3.5-5.1); Sodium 137 mmol/L (135-145); eGFR > 60.00
--- NOTE | 2025-02-21 07:58 | CON.GI ---
Addendum entered and electronically signed by Cindi Pina MD 02/21/25 13:35:
I saw and evaluated the patient. I reviewed the resident�s note and agree with findings and plan as documented in the resident�s note.
This patient is an 84-year-old man who has a history of atrial fibrillation, hypertension who states that he ate sausage and eggs on Monday and felt that he got stuck in his stomach. He intermittently feels like food gets stuck and does not get
fully digested. He did come to the emergency room with severe pain. He does state that he has not had any vomiting from this. He has never had an endoscopy. He does not have any lower GI symptoms. He does not take regular NSAIDs I did review
the CAT scan images that show a distended stomach with some thickening at the pylorus or proximal duodenum.
abd: soft, positive succussion splash
jose david liver testser tests normal. total bilirubin chronically elevated
impression:
gastric outlet obstruction
abdominal pain
abnormal imaging
increased bilirubin ?gilberts
plan:
NGT to intermittent suction
abd xray
check direct bilirubin
will eventually need EGD
PPI IV bid
hold eliquis if possible
Original Note:
Consultation
-
Date/Time Consultation Requested: 02/21/2025
Date/Time Consultation Performed: 02/21/2025
Requesting Provider: Corby Gutierrez
Performing Provider: Cindi Pina
Reason for Consultation: Duodenitis / Gastritis
Medical History
Chief Complaint / HPI
Chief Complaint: Intractable nausea/vomiting
History of Present Illness:
Jayson is an 84-year-old gentleman with a past medical history of ASCVD, A-fib status post ablation (on Eliquis), hypertension, insomnia who presented to the emergency department complaining of abdominal pain nausea and vomiting.
First noticed symptoms of nausea and right upper quadrant abdominal pain Monday 02/19 after eating breakfast of sausage and eggs. He reports that the food went down without pain and he was in his usual state of health prior to the meal. However,
after eating he soon felt as if the food was stuck and he felt like he wanted to vomit but could not. He proceeded to try and induce vomiting greater than 20 times with subsequent retching and occasional small-volume, clear, nonbloody emesis. If
no other symptoms of diarrhea, fevers, chills, chest pain, shortness of breath. He continue with the rest of the day with decreased appetite and no food or oral intake, however he was able to swallow his secretions. He went to a snf constitution party
for his son , was additionally unable to eat or drink during that time with persistent feelings of nausea and failed attempts to induce vomiting. He tried taking Aleve during this time for abdominal pain which escalated to '10 out of 10'.
The Aleve did not help. He got Tums from the hotel staff he took them at night which did help and brought the pain from a 10 to a 5, however he was unable to sleep through the night had remained in an upright position. He took Tums again in the
flight operations inspector on 02/21 and decided to go to an urgent care who referred him to the ED. He had an episode of vomiting in the car on his way to the ED which was clear, nonbloody, and did not relieve the nausea. On arrival to the ED he was
hemodynamically stable.
He has never had a colonoscopy or endoscopy. He does not take regular NSAIDs. He does not report regular GERD like symptoms or take any antacids.
Lab work on admission revealed leukocytosis of 13.4, stable hemoglobin of 16.9, slightly elevated BUN of 28, creatinine 1.2, hypercalcemia 11.2, total bilirubin of 3.5, normal LFTs. CT scan of the abdomen was done which demonstrated severe hepatic
steatosis, fatty infiltration of the pancreas, moderate wall thickening of the 1st and 2nd portions of the duodenum with accompanying inflammatory fat stranding, diverticulosis without evidence of diverticulitis.
GI was consulted for concern of duodenitis and intractable nausea and vomiting.
Past Medical History
Past Medical History: Other (See HPI)
Past Surgical History: Other (S/p cardiac stenting, tonsil removal, ureteral stent placement in 2020, ablation for atrial fibrillation.)
Social History
Tobacco: Former Smoker
Alcohol: None
Drug: None
Employment: Retired
Family History
Family History: Reviewed & Not Pertinent
Allergies / Home Medications
Allergy/AdvReac Type Severity Reaction Status Date / Time
No Known Allergies Allergy Verified 06/15/24 22:59
�Medication �Instructions �Recorded
metoprolol tartrate 50 mg tablet 50 mg PO TID Blood pressure 03/17/21
apixaban 5 mg tablet (Eliquis) 5 mg PO BID 01/17/22
atorvastatin 20 mg tablet 20 mg PO HS 02/21/25
lisinopril 40 mg tablet 40 mg PO DAILY 02/21/25
quetiapine 25 mg tablet 25 mg PO HSPRN PRN Sleep 02/21/25
Review of Systems
-
History Source: Patient
All other systems: A 12 pt ROS was Negative except as stated above in HPI
Vital Signs
Temp Pulse Resp BP Pulse Ox
98.4 F 64 16 170/82 97
02/21/25 07:26 02/21/25 07:26 02/21/25 07:26 02/21/25 07:26 02/21/25 07:26
Physical Exam
Exam
General: Well Developed, Well Nourished, No Apparent Distress and Comfortable
HEENT: Normocephalic, Anicteric, Moist Mucous Membranes and Atraumatic
Respiratory: Clear and Non Labored Respirations; Negative Wheezes, Rales or Rhonchi
Cardiac: S1/S2 and Regular Rhythm; Negative Murmur or Rub
Breast: N/A
GI: Soft, Non Tender, Non Distended and Normal Bowel Sounds
Rectal: Deferred by Provider
Musculoskeletal: No Clubbing, No Cyanosis and No Edema
Skin: Warm and Dry
Neuro: AO x 3
Psych: Calm
Results
WBC 12.0 10^3/uL (4.8-10.8) H 02/21/25 06:42
Hgb 14.8 g/dL (13.0-18.0) 02/21/25 06:42
Hct 42.9 % (39.0-52.0) 02/21/25 06:42
MCV 88.5 fL (80.0-94.0) 02/21/25 06:42
Plt Count 132 10^3/uL (130-400) 02/21/25 06:42
Absolute Neuts (auto) 11.3 10^3/uL (1.4-6.5) H 02/20/25 19:07
Sodium 137 mmol/L (135-145) 02/21/25 06:42
Potassium 4.5 mmol/L (3.5-5.1) 02/21/25 06:42
Chloride 108 mmol/L (98-107) H 02/21/25 06:42
Carbon Dioxide 25 mmol/L (22-30) 02/21/25 06:42
BUN 23 mg/dl (9-20) H 02/21/25 06:42
Creatinine 1.1 mg/dL (0.7-1.3) 02/21/25 06:42
Calcium 9.6 mg/dl (8.4-10.2) D 02/21/25 06:42
Total Bilirubin 3.5 mg/dl (0.2-1.3) H 02/20/25 19:07
AST 26 U/L (17-59) 02/20/25 19:07
ALT 32 U/L (0-50) 02/20/25 19:07
Alkaline Phosphatase 108 U/L (38-126) 02/20/25 19:07
Lipase 162 U/L (23-300) 02/20/25 19:07
Diagnostic Image Results:
Prior GI Procedures: None
EGD: None, never had
Colonoscopy: None, never had
Assessment / Plan
-
Jayson is an 84-year-old gentleman with a past medical history of ASCVD, A-fib status post ablation (on Eliquis), hypertension, insomnia who presented to the emergency department complaining of abdominal pain nausea and vomiting which started on
Monday, 02/19. He reports feelings of persistent nausea, right upper quadrant pain, 10 out of 10, only relieved by Tums, and intermittent vomiting. On arrival to the ED he was hemodynamically stable, had leukocytosis, was afebrile CT scan
demonstrated concerns for duodenitis, however by our read seems to have a significantly dilated stomach with liquid contents.
#Nausea
#Vomiting
#Right upper quadrant abdominal pain
#Duodenitis
#Leukocytosis
#Hyperbilirubinemia
Based on imaging findings dilated stomach, inflammation of the 1st and 2nd part of the duodenum and symptoms of tractable nausea vomiting, there is concern for partial gastric outlet obstruction. Other etiologies include duodenal ulcer,
gastroparesis, other dysmotility disorder.
- Continue for now with n.p.o., IV fluids, IV antiemetics as necessary
- Continue with IV PPI twice daily
- Continue to hold Eliquis
- Patient will need NG tube decompression of gastric contents prior to endoscopic procedure
- Will order repeat bilirubin with fractionation
- May consider additional imaging with abdominal ultrasound plus or minus Doppler pending follow-up lab results and clinical progression
-
-
Thank you for consultation and allowing me to participate in the patient's care. Please call the button pusher GI physician during the after hours with any questions or concerns.
[2025-02-21 08:18] LABS: Glycohemoglobin (HgbA1c) 7.0 % (4.0-5.6)
[2025-02-21] MEDS: NOVOLOG FLEXPEN-LOW RESISTANCE SC ×3 (08:27→16:33)
[2025-02-21] MEDS: LOPRESSOR 50 MG PO ×2 (08:28→17:17)
[2025-02-21] MEDS: PROTONIX IV 40 MG IV ×2 (08:31→20:00)
[2025-02-21] MEDS: ZESTRIL 40 MG PO (08:32)
--- NOTE | 2025-02-21 08:33 | W.PN.HOSP.TC ---
Today's Communication/Plan
-
Maintain NGT intermittent suction
Oral Meds via tube. When giving tube meds, hold suction for 1 hour, 15 min if just liquid Tylenol
pain nausea control
IV hydralazine prn SBP>170
empiric zosyn for now
trend wbc temp
For sleep Scheduled bedtime seroquel, IV Valium prn
Assessment / Plan
Assessment / Plan
Physical Exam
General: no acute distress but seems relatively uncomfortable
HEENT: Moist mucous membranes, normocephalic, atraumatic. NGT in place
Respiratory: Clear; No Wheezes, Rales or Rhonchi
Cardiac: S1/S2 sinus bradycardia; No Murmur
GI: Soft, Non Tender, decreased bowel sounds, distended vs Obese habitus
Musculoskeletal: No Clubbing, No Cyanosis and No Edema
Neuro: AO x 3
Psych: calm
A/P: Patient is an 84y M with PMH significant for ASCVD, A-Fib and HTN who presents to ED complaining of two days of abdominal pain and nausea.
Duodenitis
Concern for possible Gastric Outlet Obstruction
- Patient reports prior instances of food feeling 'stuck' in the epigastric region.
- CT abd/pelvis suggestive of Duodenitis
- IV PPI BID.
- Supportive care with IVFs, pain control, antiemetics
- GI eval appreciated NGT intermittent suction, Eventual EGD, hold Eliquis
- NPO, meds through tube, suction to be held for 1 hour after tube meds, 15 min if just Liquid Tylenol, ok to resume suction regardless if develops severe pain/nausea
Mild Leukocytosis
-suspect stress reactive
-started empiric Zosyn for now, possible aspiration from prior episodes nausea vomiting
ASCVD
A-Fib s/p Ablation
- NSR
- Cont home metoprolol via NGT w instructions as above
- Hold home statin acutely
- Hold Eliquis as above
Benign Hypertension
- cont home metoprolol and losartan with holding parameters
- Continue efforts at pain / nausea control
-some concern patient may be underreporting pain (preferring to call it 'discomfort' instead)
- IV hydralazine as needed for SBP>170, avoiding IV Labetalol as patient already Sinus Wero on home metoprolol regimen
DVT Prophylaxis: SCDs while Eliquis on hold.
Code Status: Full
Discussed with patient, patient's son Kt, and RN
I spent a total of 50 minutes with the patient or on the floor. More than 50% of this time involved counseling and coordination of care.
Anticipated Discharge: 24 - 48 hours
Subjective/Interval History
-
Date of Service: February 21, 2025
Seen and examined at bedside in no acute distress but seems relatively uncomfortable. Denies pain but also endorses being 'uncomfortable.' No nausea, NGT tube in place on intermittent suction
Objective Data
-
Labs:
Laboratory Results
02/21/25
06:42
WBC 12.0 H
Hgb 14.8
Hct 42.9
Plt Count 132
Sodium 137
Potassium 4.5
Chloride 108 H
Carbon Dioxide 25
BUN 23 H
Creatinine 1.1
Glucose 143 H
Calcium 9.6 D
Vital Signs:
Vital Signs
Temp Pulse Resp BP Pulse Ox
98.4 F 64 16 170/82 97
02/21/25 07:26 02/21/25 07:26 02/21/25 07:26 02/21/25 07:26 02/21/25 07:26
[2025-02-21 11:58] LABS: Glucose - Point of Care 129 mg/dl (70-99)
--- NOTE | 2025-02-21 16:26 | CM ---
Alert awake oriented patient who lives alone in a one story home with 1 step to enter; bed and bathroom on first floor. He is independent in ambulation and ADLs.
Pt admitted with duodenitis; came to ED via EMS, vomited and is now feeling better.
No history of VN/SNF.
Pharmacy [facility]
PCP None on record
PLAN Home with no anticipated needs.
[2025-02-21 16:32] LABS: Glucose - Point of Care 124 mg/dl (70-99)
[2025-02-21] MEDS: TYLENOL ORAL SOLUTION 650 MG PO (17:33)
[2025-02-21] MEDS: DILAUDID 0.25 MG IV (17:54)
[2025-02-21] MEDS: ZOSYN 50 IV ×2 (18:18→23:04)
--- NOTE | 2025-02-21 18:20 | PTCARENOTE ---
RN assessed pt's BP prior to administration of scheduled Metoprolol. BP 193/82, HR 67. Per MD, hold PRN Hydralazine for now and give scheduled Metoprolol, liquid Tylenol 650mg, and 0.25mg IV Dilaudid, then reassess BP after. All 3 medications given
as ordered and will reassess BP around 1830. MD to be notified.
[2025-02-21] MEDS: APRESOLINE 5 MG IV (18:39)
--- NOTE | 2025-02-21 18:48 | PTCARENOTE ---
Pt's BP still remains elevated after administration of Metoprolol, liquid Tylenol, and Dilaudid at 171/85 and HR 64. MD notified via TT. Hydralazine administered per protocol and per MD.
[2025-02-21] MEDS: NSS (PRESERVATIVE FREE) 10 ML IV (20:00)
[2025-02-21] MEDS: LOPRESSOR 50 MG TUBE (21:40)
[2025-02-21] MEDS: SEROQUEL 25 MG TUBE (21:40)
[2025-02-22 00:50] LABS: Glucose - Point of Care 114 mg/dl (70-99)
[2025-02-22] MEDS: NSS 1000 IV ×3 (02:48→20:18)
[2025-02-22 03:05] VITALS: BP 159/69
[2025-02-22 05:18] VITALS: BMI 31.7
[2025-02-22] MEDS: ZOSYN 50 IV (05:24)
[2025-02-22 06:11] LABS: Glucose - Point of Care 121 mg/dl (70-99)
[2025-02-22 06:29] LABS: Hematocrit 40.1 % (39.0-52.0); Hemoglobin 13.8 g/dL (13.0-18.0); Mean Corp Hgb Conc. 34.4 g/dL (33.0-37.0); Mean Corpuscular Volume 89.3 fL (80.0-94.0); Platelet Count 116 10^3/uL (130-400); Red Cell Dist. Width 12.2 % (11.5-14.5)
[2025-02-22 06:33] LABS: ALT (SGPT) 20 U/L (0-50); AST (SGOT) 19 U/L (17-59); Albumin 3.2 g/dl (3.5-5.0); Alkaline Phosphatase 79 U/L (38-126); Blood Urea Nitrogen 22 mg/dl (9-20); Calcium 9.2 mg/dl (8.4-10.2); Carbon Dioxide 24 mmol/L (22-30); Chloride 112 mmol/L (98-107); Estimated Creatinine Clearance 61 ml/min; Glucose 124 mg/dl (70-99); Magnesium 1.9 mg/dl (1.6-2.3); Potassium 4.3 mmol/L (3.5-5.1); Sodium 140 mmol/L (135-145); Total Protein 5.4 g/dl (6.3-8.2); eGFR > 60.00
[2025-02-22 06:37] LABS: Procalcitonin < 0.05 ng/ml (0.0-0.25)
--- NOTE | 2025-02-22 07:40 | W.PN.HOSP.TC ---
Today's Communication/Plan
-
trial clear liquid diet
dc abx monitor off, leukocytosis resolved and procal neg
cont IVF support
blood pressure control
Tentative plan for EGD Mon
Assessment / Plan
Assessment / Plan
Physical Exam
General: no acute distress but seems relatively uncomfortable
HEENT: Moist mucous membranes, normocephalic, atraumatic. NGT in place
Respiratory: Clear; No Wheezes, Rales or Rhonchi
Cardiac: S1/S2 sinus bradycardia; No Murmur
GI: Soft, Non Tender, decreased bowel sounds, distended vs Obese habitus
Musculoskeletal: No Clubbing, No Cyanosis and No Edema
Neuro: AO x 3
Psych: calm
A/P: Patient is an 84y M with PMH significant for ASCVD, A-Fib and HTN who presents to ED complaining of two days of abdominal pain and nausea.
Duodenitis
Concern for possible Gastric Outlet Obstruction
- Patient reports prior instances of food feeling 'stuck' in the epigastric region.
- CT abd/pelvis suggestive of Duodenitis
- IV PPI BID.
- Supportive care with IVFs, pain control, antiemetics
- GI eval appreciated ok to DC NGT, trial clear liquid diet, tentative plan for EGD Mon
Mild Leukocytosis
-suspect stress reactive
-since resolved
-procalcitonin neg
-empiric abx zosyn discontinued monitored off
ASCVD
A-Fib s/p Ablation
- NSR
- Cont home metoprolol w/ holding parameters
- Hold home statin acutely
- Hold Eliquis as above
Benign Hypertension
- cont home metoprolol and losartan with holding parameters
- pain / nausea control
-some concern patient may be underreporting pain (preferring to call it 'discomfort' instead- 'how would you rate your discomfort?')
- IV hydralazine as needed for SBP>170, avoiding IV Labetalol as patient already Sinus Wero on home metoprolol regimen
Insomnia
Seroquel 50 mg HS
IV Dilaudid 0.25mg HSPRN if seroquel not enought (low dose Dilaudid has been effective in initiating sleep in patient without causing significant confusion)
DVT Prophylaxis: SCDs while Eliquis on hold.
Code Status: Full
Discussed with patient, patient's sons Kt and Edouard, and RN
I spent a total of 45 minutes with the patient or on the floor. More than 50% of this time involved counseling and coordination of care.
Anticipated Discharge: 24 - 48 hours
Subjective/Interval History
-
Date of Service: February 22, 2025
No acute distress resting comfortably in bed. Reports feeling significantly better since NGT removed. Little Meraz and Edouard present during evaluation.
Objective Data
-
Labs:
Laboratory Results
02/22/25
06:02
WBC 8.8
Hgb 13.8
Hct 40.1
Plt Count 116 L
Sodium 140
Potassium 4.3
Chloride 112 H
Carbon Dioxide 24
BUN 22 H
Creatinine 1.1
Glucose 124 H
Calcium 9.2
Total Bilirubin 2.7 H
AST 19
ALT 20
Alkaline Phosphatase 79
Vital Signs:
Vital Signs
Temp Pulse Resp BP Pulse Ox
98.5 F 58 18 159/69 97
02/22/25 03:05 02/22/25 03:05 02/22/25 03:05 02/22/25 03:05 02/22/25 03:05
I&O
02/21/25 02/22/25 02/23/25
06:59 06:59 06:59
Output Total 975 / 975
Balance -975 / -975
[2025-02-22 07:44] VITALS: BP 129/62
[2025-02-22] MEDS: NOVOLOG FLEXPEN-LOW RESISTANCE SC ×3 (08:22→16:58)
[2025-02-22] MEDS: ZESTRIL 40 MG TUBE (08:27)
[2025-02-22] MEDS: PROTONIX IV 40 MG IV ×2 (08:28→19:54)
[2025-02-22] MEDS: NSS (PRESERVATIVE FREE) 10 ML IV ×2 (08:28→19:54)
[2025-02-22] MEDS: LOPRESSOR 50 MG TUBE (08:29)
--- NOTE | 2025-02-22 11:39 | W.PN.GI.CBS2 ---
Today's Communication / Plan
-
d/c NGT
IV PPI
Assessment / Plan
-
Jayson is an 84-year-old gentleman with a past medical history of ASCVD, A-fib status post ablation (on Eliquis), hypertension, insomnia who presented to the emergency department complaining of abdominal pain nausea and vomiting CT scan demonstrated
concerns for duodenitis, however by our read seems to have a significantly dilated stomach with liquid contents.
leukocytosis: resolved
gastroenteritis vs GOO
plan:
can d/c NGT
continue IV fluids
contine IV PPI
currently on IV antibx
if no vomiting today will give clears
EGD for monday to r/o PUD
Subjective
Subjective
Date of Service: February 22, 2025
NGT w/o significant drainage
Pt does however feel better in terms of his stomach
Objective
Data Reviewed
Laboratory Data:
Laboratory Results
02/22/25 06:02
02/22/25 06:02
Laboratory Results
Phosphorus 2.4 mg/dl (2.5-4.5) L 02/22/25 06:02
Magnesium 1.9 mg/dl (1.6-2.3) 02/22/25 06:02
Total Bilirubin 2.7 mg/dl (0.2-1.3) H 02/22/25 06:02
AST 19 U/L (17-59) 02/22/25 06:02
ALT 20 U/L (0-50) 02/22/25 06:02
Alkaline Phosphatase 79 U/L (38-126) 02/22/25 06:02
Lipase 162 U/L (23-300) 02/20/25 19:07
Vital Signs and I&O:
Vital Signs
Temp Pulse Resp BP Pulse Ox
98.4 F 63 16 129/62 95
02/22/25 07:44 02/22/25 07:44 02/22/25 07:44 02/22/25 07:44 02/22/25 07:44
I&O
02/21/25 02/22/25 02/23/25
06:59 06:59 06:59
Output Total 975 / 975
Balance -975 / -975
Physical Exam
Physical Exam
GI: Soft, Non Distended and Non Tender
[2025-02-22 13:05] LABS: Glucose - Point of Care 107 mg/dl (70-99)
[2025-02-22] MEDS: ZOSYN IV (13:28)
--- NOTE | 2025-02-22 15:32 | PTCARENOTE ---
NGT removed during shift and CLD ordered. Pt tolerating CLD stating ' I feel so much better, I'm not nauseous at all'. Pt reported to MD that he has not slept, but is noted to be sleeping during nursing rounds. Son at bedside asked for 11am vitals
not to be taken, since the patient was sleeping. Denies pain/discomfort. Call castaneda within reach.
[2025-02-22 16:13] VITALS: BP 160/69
[2025-02-22 16:47] LABS: Glucose - Point of Care 103 mg/dl (70-99)
[2025-02-22] MEDS: LOPRESSOR PO (17:32)
[2025-02-22 20:40] VITALS: BP 144/65
[2025-02-22] MEDS: LOPRESSOR 50 MG PO (21:10)
[2025-02-22] MEDS: SEROQUEL 50 MG PO (21:11)
[2025-02-22 21:24] LABS: Glucose - Point of Care 171 mg/dl (70-99)
[2025-02-22 23:32] VITALS: BP 142/63
--- NOTE | 2025-02-22 23:38 | W.PN.UPDATE ---
Update Note
Progress Note Update
-hr is dropping down to high 30s and low 40s while sleeping, bp 142/63, Spo2 96% RA. Asymptomatic. Patient with PMH of sleep apnea.
-Patient also received Metoprolol 50mg at hs.
-2 L of O2 ordered and hr up to 50s.
-Per patient, he never uses CPAP at home. Order placed for CPAP if the patient agree and can tolerate.
[2025-02-23] VITALS (9 sets, daily range): BP systolic 139–197; BP diastolic 59–94; BMI 32.3
[2025-02-23] MEDS: NSS 1000 IV (04:04)
--- NOTE | 2025-02-23 06:17 | SUR.OPER ---
Pt's HR noted to briefly go down to 38-low 40s. Has been in high 40s-low 50s overnight while asleep. PROJECT COACH made aware. Pt previously stated that he was diagnosed with sleep apnea by one physician but has never used cpap machine. Pt placed on 2L O2
overnight and had refused cpap machine that was ordered. Pt continues to be dyspneic at rest and on exertion with SaO2 >95% . Bladder scanned done to rule out urinary retention. Discussed with PROJECT COACH and will stop IVF at this time.
--- NOTE | 2025-02-23 06:37 | PTCARENOTE ---
Pt's HR noted to briefly go down to 38-low 40s. Has been in high 40s-low 50s overnight while asleep. TREATMENT COUNSELOR made aware. Pt previously stated that he was diagnosed with sleep apnea by one physician but has never used cpap machine. Pt placed on 2L O2
overnight and had refused cpap machine that was ordered. Pt continues to be dyspneic at rest and on exertion with SaO2 >95% . Bladder scanned done to rule out urinary retention. Discussed with TREATMENT COUNSELOR and will stop IVF at this time.
--- NOTE | 2025-02-23 07:52 | W.PN.HOSP.TC ---
Today's Communication/Plan
-
blood pressure control, Amlodipine added
diet as per GI
npo after midnight for EGD
Assessment / Plan
Assessment / Plan
Physical Exam
General: no acute distress, appears relatively comfortable
HEENT: Moist mucous membranes, normocephalic, atraumatic.
Respiratory: Clear; No Wheezes, Rales or Rhonchi
Cardiac: S1/S2 sinus bradycardia; No Murmur
GI: Soft, Non Tender, decreased bowel sounds, distended vs Obese habitus
Musculoskeletal: No Clubbing, No Cyanosis and No Edema
Neuro: AO x 3
Psych: calm
A/P: Patient is an 84y M with PMH significant for ASCVD, A-Fib and HTN who presents to ED complaining of two days of abdominal pain and nausea.
Duodenitis
Concern for possible Gastric Outlet Obstruction
- Patient reports prior instances of food feeling 'stuck' in the epigastric region.
- CT abd/pelvis suggestive of Duodenitis
- IV PPI BID.
- Supportive care with IVFs, pain control, antiemetics
- GI eval appreciated full liquid diet, npo after midnight for EGD Mon/tomorrow
-Maalox prn indigestion
Mild Leukocytosis
-suspect stress reactive
-since resolved
-procalcitonin neg
-empiric abx zosyn discontinued monitored off
ASCVD
A-Fib s/p Ablation
- NSR
- Cont home metoprolol w/ holding parameters
- Hold home statin acutely
- Hold Eliquis as above
Benign Hypertension
Severe Bradycardia
- cont losartan with holding parameters
- pain / nausea control
-some concern patient may be underreporting pain (preferring to call it 'discomfort' instead)
- IV hydralazine as needed for SBP>170, avoiding IV Labetalol as patient already Sinus Wero on home metoprolol regimen
-home Metoprolol placed on hold d/t severe bradycardia overnight asymptomatic, prn IV lopressor ordered
-started on Amlodipine 5 mg daily d/t uncontrolled HTN
-Cardio eval requested for tomorrow/Monday
Diabetes
-mild, A1c 7.0
-sliding scale
-eventual consideration start Metformin (for Diabetes and Obesity)
Insomnia
Seroquel 50 mg HS
Likely Bereavement
- a few months ago
-declined psych eval.
DVT Prophylaxis: SCDs while Eliquis on hold.
Code Status: Full
Discussed with patient and patient's son Kt
I spent a total of 45 minutes with the patient or on the floor. More than 50% of this time involved counseling and coordination of care.
Anticipated Discharge: 24 - 48 hours
Subjective/Interval History
-
Date of Service: February 23, 2025
Tolerating clear liquid diet advanced to full. Had and episode of indigestion resolved with once maalox. BP noted elevated. Son Kt present during evaluation.
Objective Data
-
Labs:
Laboratory Results
02/23/25
07:23
WBC Pending
Hgb Pending
Hct Pending
Plt Count Pending
Sodium Pending
Potassium Pending
Chloride Pending
Carbon Dioxide Pending
BUN Pending
Creatinine Pending
Glucose Pending
Calcium Pending
Vital Signs:
Vital Signs
Temp Pulse Resp BP Pulse Ox
97.8 F 54 20 163/78 98
02/23/25 07:00 02/23/25 07:00 02/23/25 07:00 02/23/25 07:00 02/23/25 07:00
I&O
02/22/25 02/23/25 02/24/25
06:59 06:59 06:59
Intake Total 480 / 480 1500 / 1500
Output Total 975 / 975 1100 / 1100 500 / 500
Balance -975 / -975 -620 / -620 1000 / 1000
[2025-02-23 07:55] LABS: Hematocrit 37.6 % (39.0-52.0); Hemoglobin 13.0 g/dL (13.0-18.0); Mean Corp Hgb Conc. 34.6 g/dL (33.0-37.0); Mean Corpuscular Volume 88.7 fL (80.0-94.0); Platelet Count 111 10^3/uL (130-400); Red Cell Dist. Width 12.2 % (11.5-14.5)
--- NOTE | 2025-02-23 07:59 | W.PN.GI.CBS2 ---
Today's Communication / Plan
-
egd tomorrow
Assessment / Plan
-
Jayson is an 84-year-old gentleman with a past medical history of ASCVD, A-fib status post ablation (on Eliquis), hypertension, insomnia who presented to the emergency department complaining of abdominal pain nausea and vomiting CT scan demonstrated
concerns for duodenitis, however by our read seems to have a significantly dilated stomach with liquid contents.
leukocytosis: resolved
gastroenteritis vs GOO
plan:
can advance to full liquids
EGD for monday to r/o PUD
PPI
off of eliquis
Subjective
Subjective
Date of Service: February 23, 2025
Pt feeling better after NGT, tolerated clears
Objective
Data Reviewed
Laboratory Data:
Laboratory Results
02/23/25 07:23
Laboratory Results
Phosphorus 2.4 mg/dl (2.5-4.5) L 02/22/25 06:02
Magnesium 1.9 mg/dl (1.6-2.3) 02/22/25 06:02
Total Bilirubin 2.7 mg/dl (0.2-1.3) H 02/22/25 06:02
AST 19 U/L (17-59) 02/22/25 06:02
ALT 20 U/L (0-50) 02/22/25 06:02
Alkaline Phosphatase 79 U/L (38-126) 02/22/25 06:02
Lipase 162 U/L (23-300) 02/20/25 19:07
Vital Signs and I&O:
Vital Signs
Temp Pulse Resp BP Pulse Ox
97.8 F 54 20 163/78 98
02/23/25 07:00 02/23/25 07:00 02/23/25 07:00 02/23/25 07:00 02/23/25 07:00
I&O
02/22/25 02/23/25 02/24/25
06:59 06:59 06:59
Intake Total 480 / 480 1500 / 1500
Output Total 975 / 975 1100 / 1100 500 / 500
Balance -975 / -975 -620 / -620 1000 / 1000
Physical Exam
Physical Exam
HEENT: Anicteric
GI: Soft, Non Distended and Non Tender
Neuro: Non Focal
[2025-02-23 08:05] LABS: Glucose - Point of Care 111 mg/dl (70-99)
[2025-02-23 08:16] LABS: Blood Urea Nitrogen 16 mg/dl (9-20); Calcium 8.2 mg/dl (8.4-10.2); Carbon Dioxide 24 mmol/L (22-30); Chloride 115 mmol/L (98-107); Estimated Creatinine Clearance 76 ml/min; Glucose 103 mg/dl (70-99); Magnesium 1.9 mg/dl (1.6-2.3); Potassium 4.0 mmol/L (3.5-5.1); Sodium 140 mmol/L (135-145); eGFR > 60.00
[2025-02-23] MEDS: NOVOLOG FLEXPEN-LOW RESISTANCE SC ×2 (08:17→16:56)
[2025-02-23] MEDS: NSS (PRESERVATIVE FREE) 10 ML IV ×2 (08:29→20:04)
[2025-02-23] MEDS: PROTONIX IV 40 MG IV ×2 (08:29→20:04)
[2025-02-23] MEDS: ZESTRIL 40 MG PO (08:30)
[2025-02-23 11:42] LABS: Glucose - Point of Care 160 mg/dl (70-99)
[2025-02-23] MEDS: NEUTRA-PHOS POWDER PACKET 250 MG PO (12:55)
[2025-02-23] MEDS: NORVASC 2.5 MG PO ×2 (12:56→19:31)
[2025-02-23] MEDS: NOVOLOG FLEXPEN-LOW RESISTANCE 1 UNITS SC (13:50)
[2025-02-23] MEDS: MAALOX 30 ML PO (13:51)
[2025-02-23] MEDS: DESENEX/MITRAZOL/ZEASORB 1 APPLIC TOPICAL ×2 (16:48→20:05)
[2025-02-23 16:56] LABS: Glucose - Point of Care 84 mg/dl (70-99)
[2025-02-23] MEDS: APRESOLINE 5 MG IV (17:28)
[2025-02-23] MEDS: SEROQUEL 50 MG PO (21:10)
[2025-02-23 21:35] LABS: Glucose - Point of Care 106 mg/dl (70-99)
[2025-02-24] VITALS (12 sets, daily range): BP systolic 130–183; BP diastolic 53–91; BMI 31.8
[2025-02-24 05:58] LABS: Glucose - Point of Care 103 mg/dl (70-99)
--- NOTE | 2025-02-24 07:31 | CON.CAR ---
Addendum entered and electronically signed by Anthony Watson MD 02/24/25 09:57:
I saw and examined the patient.
The CAR [employer] or PA's note was reviewed and I agree with the note.
Comment: General: Well developed, well nourished in NAD.
Neck: Supple, no JVD, HJR, carotids +2 B/L, no bruits bilaterally.
Heart: Non displaced PMI, RRR, no murmurs, No S3, S4, no rubs.
Lungs: Clear to auscultation bilaterally, no wheeze, rhonchi, rubs bilaterally,
normal expiratory phase.
Abdomen: Normal bowel sounds, soft, non-tender, non-distended.
Extremities: No clubbing, cyanosis or edema bilaterally.
Neuro: Grossly nonfocal, awake, alert and oriented x3.
He has a history of PAF on chronic Eliquis, hypertension, diabetes, sleep apnea and has declined CPAP. He presented with nausea vomiting after eating sausages and is admitted with duodenitis. Cardiology was consulted for sinus bradycardia prior to
endoscopy. He denies chest pain or shortness of breath. Of note he is chronically on Lopressor 50 mg 3 times daily as an outpatient and this has been decreased to 25 mg p.o. twice daily and now has been held.
Reviewed telemetry. No significant bradycardia. Patient is okay for endoscopy and other GI testing with without any further procedures. Will continue to follow off of Lopressor. Some of this may be due to his untreated sleep apnea but no
treatment is needed other than holding beta-feroz.
Original Note:
Consultation
Consultation Request
Date/Time Consultation Requested: 02/23/25 at 1835
Date/Time Consultation Performed: 02/24/25 at 0734
Requesting Provider: Dr. Aguilar
Performing Provider: Dr. Watson
Reason for Consultation: Sinus bradycardia
Medical History
-
History of Present Illness:
Patient came to the ER on with nausea and vomiting after eating some sausages and was admitted with duodenitis and cardiology is now consulted for sinus bradycardia. Patient lost his in October, but recently has been celebrating some of
his son's accomplishments at work and is part of this he had symptoms of intense abdominal pain with N/V after eating some sausages. It felt like the food was stuck. He did his best to get through the symptoms so that he could be there for his
son's work celebration and then came to the ER on where CT suggested duodenitis. Patient was admitted and briefly had NG tube in place. Gastroenterology is following and EGD is planned to evaluate for possible peptic ulcer disease or
gastric outlet obstruction on 02/24/2025. Cardiology is consulted for sinus bradycardia. Patient has known paroxysmal A-fib with a PVI back in 2021. He is chronically on Lopressor 50 mg TID as an outpatient and this dose was initially continued on
admission, the patient was noted to have bradycardia and dose was decreased to 25 mg BID, but bradycardia persisted and Lopressor is now on hold and cardiology has been consulted. Patient denies feeling lightheaded or dizzy. Patient has BRADLEY and
does not use CPAP at home.
PMH:
Paroxysmal A-fib
Chronic Eliquis OAC
HTN
DM 2
BRADLEY declining CPAP
Past Medical History
Past Medical History: Other (in HPI)
Past Surgical History: Cardiac (RCA DANIEL 2011PVI 2021) and Tonsilectomy
Social History
Tobacco: Former Smoker
Alcohol: None
Drug: None
Personal: (his in October)
Living: Alone
Family History
Family History: Other (SLE)
Allergies / Home Medications
Allergy/AdvReac Type Severity Reaction Status Date / Time
No Known Allergies Allergy Verified 06/15/24 22:59
�Medication �Instructions �Recorded �Confirmed �Type
metoprolol tartrate 50 mg tablet 50 mg PO TID Blood pressure 03/17/21 02/21/25 History
apixaban 5 mg tablet (Eliquis) 5 mg PO BID Blood Clot 01/17/22 02/21/25 History
Prevention/Tx
atorvastatin 20 mg tablet 20 mg PO HS High Cholesterol 02/21/25 02/21/25 History
lisinopril 40 mg tablet 40 mg PO DAILY Blood Pressure 02/21/25 02/21/25 History
quetiapine 25 mg tablet 25 mg PO HSPRN PRN Sleep 02/21/25 02/21/25 History
Review of Systems
-
History Source: Patient
All other systems: Negative unless noted
Physical Exam
Vital Signs
Temp Pulse Resp BP Pulse Ox
98.4 F 59 16 157/72 98
02/24/25 03:57 02/24/25 03:57 02/24/25 03:57 02/24/25 03:57 02/24/25 03:57
GEN: NAD. AAOx3
HEENT: EOMI, MMM
LUNGS: RA. CTA B/L, no wheeze
CV: SR. Reg, S1/S2, no murmur
ABD: soft, BS+, NT/ND
EXT: No edema B/L LE
NEURO: Gross non-focal
SKIN: Warm, dry and pink. No rash
Lab Results
Labs pending for 02/24/2025, labs reviewed by me from 02/23/2025 include sodium 140, potassium 4.0, BUN 16, creatinine 0.9, magnesium 1.9, HgbA1c 7%
CBC pending for 02/24/2025, the CBC from 02/23/2025 reviewed by me and includes WBC 7, Hgb 13, platelet count 111,000
Impression / Plan
-
PCP, Dr. Rodriguez
Cardiology: Dr. David Felix
Impression:
Admitted with N/V and duodenitis 02/20/2025
Possible gastric outlet obstruction
Sinus bradycardia
Paroxysmal A-fib
Chronic Eliquis OAC
HTN
DM 2
BRADLEY declining CPAP
Echo 10/23/2023: EF 70 to 75%, mild concentric LVH, aortic sclerosis without stenosis
Plan:
-Patient came to the ER on with nausea and vomiting after eating some sausages and was admitted with duodenitis and cardiology is now consulted for sinus bradycardia. Patient lost his in October, but recently has been celebrating some of
his son's accomplishments at work and is part of this he had symptoms of intense abdominal pain with N/V after eating some sausages. It felt like the food was stuck. He did his best to get through the symptoms so that he could be there for his
son's work celebration and then came to the ER on where CT suggested duodenitis. Patient was admitted and briefly had NG tube in place. Gastroenterology is following and EGD is planned to evaluate for possible peptic ulcer disease or
gastric outlet obstruction on 02/24/2025. Cardiology is consulted for sinus bradycardia. Patient has known paroxysmal A-fib with a PVI back in 2021. He is chronically on Lopressor 50 mg TID as an outpatient and this dose was initially continued on
admission, the patient was noted to have bradycardia and dose was decreased to 25 mg BID, but bradycardia persisted and Lopressor is now on hold and cardiology has been consulted. Patient denies feeling lightheaded or dizzy. Patient has BRADLEY and
does not use CPAP at home.
-ECG from admission is reviewed by me and shows SR with PACs and HR was 68 bpm
-Telemetry reviewed by me from overnight and no evidence of heart block, overall HR greater than 55 most of the time.
-Telemetry from earlier this admission showed sinus bradycardia, again no evidence of heart block. Additionally patient is asymptomatic currently and denies any recent outpatient symptoms. This is happening in the setting of high-dose Lopressor on
admission due to history of paroxysmal A-fib, he had NG tube in place at the time of severe bradycardia and he also has untreated BRADLEY.
-HR is appropriately increasing with activity.
-Agree with holding Lopressor for now, recommend restarting a low-dose of Lopressor 12.5 mg BID tonight given the history of paroxysmal A-fib and can follow on telemetry to assure stability prior to discharge.
-Patient needs outpatient BRADLEY reevaluation and consideration of CPAP, this is going to be difficult as he lost his in October and is still grieving.
-Patient is overdue for cardiology follow-up, he admits that he is 'just not quite there yet' following the passing of his . Will make appointment for patient
-Restart Eliquis 5 mg BID (age 84, Cre 0.9, wt 100 kg) when safe following GI procedure
[2025-02-24] MEDS: PROTONIX IV 40 MG IV ×2 (07:47→20:45)
[2025-02-24] MEDS: NSS (PRESERVATIVE FREE) 10 ML IV ×2 (07:47→20:46)
[2025-02-24] MEDS: ZESTRIL 40 MG PO (07:47)
[2025-02-24] MEDS: NORVASC 5 MG PO (07:47)
[2025-02-24] MEDS: DESENEX/MITRAZOL/ZEASORB 1 APPLIC TOPICAL (07:57)
[2025-02-24 09:53] LABS: Glucose - Point of Care 100 mg/dl (70-99)
[2025-02-24 11:02] LABS: Hematocrit 39.8 % (39.0-52.0); Hemoglobin 13.9 g/dL (13.0-18.0); Mean Corp Hgb Conc. 34.9 g/dL (33.0-37.0); Mean Corpuscular Volume 87.3 fL (80.0-94.0); Platelet Count 136 10^3/uL (130-400); Red Cell Dist. Width 12.1 % (11.5-14.5)
[2025-02-24 11:24] LABS: Blood Urea Nitrogen 14 mg/dl (9-20); Calcium 9.0 mg/dl (8.4-10.2); Carbon Dioxide 27 mmol/L (22-30); Chloride 109 mmol/L (98-107); Estimated Creatinine Clearance 75 ml/min; Glucose 106 mg/dl (70-99); Magnesium 1.9 mg/dl (1.6-2.3); Potassium 4.0 mmol/L (3.5-5.1); Sodium 137 mmol/L (135-145); eGFR > 60.00
[2025-02-24 12:12] LABS: Glucose - Point of Care 94 mg/dl (70-99)
--- NOTE | 2025-02-24 12:19 | W.PN.HOSP.TC ---
Today's Communication/Plan
-
Monitor vital signs see plan
EGD today
Upper GI series
Continue with PPI
Increase amlodipine
Assessment / Plan
Assessment / Plan
Physical Exam
General: no acute distress, appears relatively comfortable
HEENT: Moist mucous membranes, normocephalic, atraumatic.
Respiratory: Clear; No Wheezes, Rales or Rhonchi
Cardiac: S1/S2 sinus bradycardia; No Murmur
GI: Soft, Non Tender, decreased bowel sounds
Musculoskeletal: No Clubbing, No Cyanosis and No Edema
Neuro: AO x 3
Psych: calm
A/P: Patient is an 84y M with PMH significant for ASCVD, A-Fib and HTN who presents to ED complaining of two days of abdominal pain and nausea.
Duodenitis
Concern for possible Gastric Outlet Obstruction
- Patient reports prior instances of food feeling 'stuck' in the epigastric region.
- CT abd/pelvis suggestive of Duodenitis
- IV PPI BID.
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 Upper GI series per GI
-Maalox prn indigestion
Mild Leukocytosis
-suspect stress reactive
-since resolved
-procalcitonin neg
-empiric abx zosyn discontinued monitored off
ASCVD
A-Fib s/p Ablation
- NSR
- Cont home metoprolol w/ holding parameters
- Hold home statin acutely
- Hold Eliquis as above
Benign Hypertension
Severe Bradycardia
- cont losartan with holding parameters
- pain / nausea control
-some concern patient may be underreporting pain (preferring to call it 'discomfort' instead)
- IV hydralazine as needed for SBP>170, avoiding IV Labetalol as patient already Sinus Wero on home metoprolol regimen
-home Metoprolol placed on hold d/t severe bradycardia overnight asymptomatic, prn IV lopressor ordered
Increase amlodipine
Diabetes
-mild, A1c 7.0
-sliding scale
-eventual consideration start Metformin (for Diabetes and Obesity)
Insomnia
Seroquel 50 mg HS
Likely Bereavement
- a few months ago
-declined psych eval.
DVT Prophylaxis: SCDs while Eliquis on hold. Restart when okay with GI
Code Status: Full
Discussed with patient
Anticipated Discharge: Within 24 hours
Subjective/Interval History
-
Date of Service: February 24, 2025
Denies nausea
Objective Data
-
Labs:
Laboratory Results
02/24/25
10:47
WBC 6.2
Hgb 13.9
Hct 39.8
Plt Count 136 D
Sodium 137
Potassium 4.0
Chloride 109 H
Carbon Dioxide 27
BUN 14
Creatinine 0.9
Glucose 106 H
Calcium 9.0
Vital Signs:
Vital Signs
Temp Pulse Resp BP Pulse Ox
98.3 F 64 18 169/86 98
02/24/25 11:15 02/24/25 11:15 02/24/25 11:15 02/24/25 11:15 02/24/25 11:15
I&O
02/23/25 02/24/25 02/25/25
06:59 06:59 06:59
Intake Total 480 / 480 2460 / 2460 50 / 50
Output Total 1100 / 1100 500 / 500
Balance -620 / -620 1959 / 1959 50 / 50
[2025-02-24] MEDS: APRESOLINE 5 MG IV (15:07)
--- NOTE | 2025-02-24 16:06 | W.PN.UPDATE ---
Update Note
Progress Note Update
UGI does not show obstruction.
can go home on PPI bid, carafate 4x day. soft diet. I will f/u biopsies.
d/w pt and son
[2025-02-24 17:01] LABS: Glucose - Point of Care 99 mg/dl (70-99)
[2025-02-24] MEDS: DESENEX/MITRAZOL/ZEASORB TOPICAL ×2 (20:47→20:49)
[2025-02-24 20:54] LABS: Glucose - Point of Care 134 mg/dl (70-99)
[2025-02-24] MEDS: SEROQUEL 50 MG PO (21:39)
[2025-02-25 03:00] VITALS: BP 174/87
[2025-02-25 05:19] VITALS: BMI 31.6
[2025-02-25] MEDS: DESENEX/MITRAZOL/ZEASORB TOPICAL (07:14)
[2025-02-25] MEDS: ZESTRIL 40 MG PO (07:14)
[2025-02-25] MEDS: PROTONIX IV 40 MG IV (07:15)
[2025-02-25] MEDS: NORVASC 10 MG PO (07:15)
[2025-02-25] MEDS: NSS (PRESERVATIVE FREE) 10 ML IV (07:15)
[2025-02-25 07:28] VITALS: BP 155/66
[2025-02-25 07:44] LABS: Glucose - Point of Care 114 mg/dl (70-99)
[2025-02-25 08:10] LABS: Hematocrit 39.8 % (39.0-52.0); Hemoglobin 14.3 g/dL (13.0-18.0); Mean Corp Hgb Conc. 35.9 g/dL (33.0-37.0); Mean Corpuscular Volume 86.7 fL (80.0-94.0); Platelet Count 140 10^3/uL (130-400); Red Cell Dist. Width 11.9 % (11.5-14.5)
[2025-02-25 08:15] LABS: Blood Urea Nitrogen 14 mg/dl (9-20); Calcium 9.0 mg/dl (8.4-10.2); Carbon Dioxide 23 mmol/L (22-30); Chloride 110 mmol/L (98-107); Estimated Creatinine Clearance 75 ml/min; Glucose 104 mg/dl (70-99); Magnesium 1.9 mg/dl (1.6-2.3); Potassium 3.8 mmol/L (3.5-5.1); Sodium 137 mmol/L (135-145); eGFR > 60.00
--- NOTE | 2025-02-25 09:55 | W.PN.HOSP.TC ---
Addendum entered and electronically signed by Andrew Aguilar MD 02/25/25 13:17:
Correction: Metoprolol has been stopped due to bradycardia. Instead started on amlodipine which was continued on discharge.
Original Note:
Today's Communication/Plan
-
monitor vitals
see plan
restart eliquis
tolerating pureed diet
cw PPI
dc today
time of discharge 37 minutes
Assessment / Plan
Assessment / Plan
Physical Exam
General: no acute distress, appears relatively comfortable
HEENT: Moist mucous membranes, normocephalic, atraumatic.
Respiratory: Clear; No Wheezes, Rales or Rhonchi
Cardiac: S1/S2 sinus bradycardia; No Murmur
GI: Soft, Non Tender, decreased bowel sounds
Musculoskeletal: No Edema
Neuro: AO x 3
Psych: calm
A/P: Patient is an 84y M with PMH significant for ASCVD, A-Fib and HTN who presents to ED complaining of two days of abdominal pain and nausea.
Duodenitis
Concern for possible Gastric Outlet Obstruction
- Patient reports prior instances of food feeling 'stuck' in the epigastric region.
- CT abd/pelvis suggestive of Duodenitis
-cw PPI BID
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 Upper GI series without obstruction. Discussed with GI. ok to dc on pureed diet with outpatient f/u
-Maalox prn indigestion
Mild Leukocytosis
-suspect stress reactive
-since resolved
-procalcitonin neg
-empiric abx zosyn discontinued monitored off
ASCVD
A-Fib s/p Ablation
- NSR
- Cont home metoprolol w/ holding parameters
- Hold home statin acutely
- restart eliquis
Benign Hypertension
Severe Bradycardia
- cont losartan with holding parameters
- pain / nausea control
-some concern patient may be underreporting pain (preferring to call it 'discomfort' instead)
- IV hydralazine as needed for SBP>170, avoiding IV Labetalol as patient already Sinus Wero on home metoprolol regimen
-home Metoprolol placed on hold d/t severe bradycardia overnight asymptomatic, prn IV lopressor ordered
Increase amlodipine
Diabetes
-mild, A1c 7.0
-sliding scale
-eventual consideration start Metformin (for Diabetes and Obesity)
Insomnia
Seroquel 50 mg HS
Likely Bereavement
- a few months ago
-declined psych eval.
DVT Prophylaxis: eliquis
Code Status: Full
Discussed with patient
Anticipated Discharge: Today
Subjective/Interval History
-
Date of Service: February 25, 2025
denies pain
Objective Data
-
Labs:
Laboratory Results
02/25/25
06:59
WBC 6.4
Hgb 14.3
Hct 39.8
Plt Count 140
Sodium 137
Potassium 3.8
Chloride 110 H
Carbon Dioxide 23
BUN 14
Creatinine 0.9
Glucose 104 H
Calcium 9.0
Vital Signs:
Vital Signs
Temp Pulse Resp BP Pulse Ox
98.3 F 62 18 155/66 99
02/25/25 07:28 02/25/25 07:28 02/25/25 07:28 02/25/25 07:28 02/25/25 08:00
I&O
02/24/25 02/25/25 02/26/25
06:59 06:59 06:59
Intake Total 2460 / 2460 530 / 530
Output Total 500 / 500
Balance 1959 / 1959 530 / 530
--- NOTE | 2025-02-25 10:02 | W.DCSUMMARY ---
Discharge Summary
Discharge Data
Date of Admission: 02/21/25
Date of Discharge: 02/25/25
-
Pending Results: Yes
Hospital Course
84-year-old male with past medical history of A-fib, CAD, hypertension, diabetes, insomnia came to the hospital with abdominal pain and nausea. CT scan initially was done which showed duodenitis. Patient was seen by gastroenterology and was taken
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 Upper GI series was then done which did not show any obstruction. Gastroenterology recommended patient to follow-up with them closely
outpatient and to be on PPI twice daily and Carafate. GI also recommended to continue pur�ed diet on discharge. While patient was in the hospital he also had significant bradycardia for which she was seen by cardiology and his metoprolol was
discontinued. He was started to follow-up with them closely outpatient. For his blood pressure he was started on amlodipine. Once his symptoms continue to improve, he was then discharged home with instructions to follow-up with all his physicians
outpatient.
Discharge Plan
-
Patient Disposition: Home (Routine Discharge)
Discharge Diagnosis/Procedures: Esophagitis
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
Leukocytosis
Diet: Other diet
Additional Diets: Pureed diet
Activity: No restrictions
Driving Restrictions: As prior to admission
Bathing Restrictions: None
Referrals:
Cindi Pina MD [Active, Gastroenterology]
NONE,* [Family Provider, Internal Medicine] - in less than 1 week
David Felix MD [Active, Cardiology]
Referral Note: Dr. Felix's office was working on an appointment for you to be seen for follow-up and we will call you with that appointment.
Prescriptions:
New
miconazole nitrate [Miconazorb AF] 2 % Powder
1 applic topical BID Qty: 85 0RF
alum-mag hydroxide-simeth [Mag-Al Plus] 200-200-20 mg/5 mL Suspension
30 ml PO QIDPRN PRN (Reason: indigestion/heartburn) Qty: 0 0RF
amlodipine 10 mg Tablet
10 mg PO DAILY Qty: 30 0RF
pantoprazole [Protonix] 40 mg tablet,delayed release (DR/EC)
40 mg PO BID Qty: 60 0RF
sucralfate [Carafate] 1 gram tablet
1 g PO ACHS Qty: 120 0RF
Continued
Eliquis 5 mg Tablet
5 mg PO BID
quetiapine 25 mg tablet
25 mg PO HSPRN PRN (Reason: Sleep)
atorvastatin 20 mg tablet
20 mg PO HS
lisinopril 40 mg tablet
40 mg PO DAILY
Discontinued
metoprolol tartrate 50 MG tablet
50 mg PO TID
Discharge Orders:
Discharge Patient (As Directed); Ordered 02/25/25
Ordered By: Andrew Aguilar
Discharge Date and Time
Discharge Date/Time: 02/25/25 12:47
Print Language: HEBREW
[2025-02-25 10:52] VITALS: BP 144/66
[2025-02-25] MEDS: ELIQUIS 5 MG PO (11:05)
--- NOTE | 2025-02-26 13:58 | CM ---
Late note from 02/25/2025:
Pt cleared for discharge to home. No identified needs.
== END 2025-02-25 12:47 | disposition home or self-care (01) | DRG 392 ==
LOC: 3 WEST ACU 16:47
PROVIDERS: Internal Medicine; ADMITTING PHYSICIAN Hospitalist; ATTENDING PHYSICIAN Internal Medicine; CONSULT PHYSICIAN Internal Medicine; EMERGENCY PHYSICIAN Emergency Medicine; OTHER PHYSICIAN Internal Medicine Cardiovascular Disease
PROC: 0DB98ZX Excision of Duodenum, Via Natural or Artificial Opening Endoscopic, Diagnostic (ICD-10-PCS; 2025-02-24)
PROC: 0DB68ZX Excision of Stomach, Via Natural or Artificial Opening Endoscopic, Diagnostic (ICD-10-PCS; 2025-02-24)
DX: K20.90 Esophagitis, unspecified without bleeding (principal); K31.5 Obstruction of duodenum; K29.80 Duodenitis without bleeding; K29.70 Gastritis, unspecified, without bleeding; I10 Essential (primary) hypertension; I25.10 Atherosclerotic heart disease of native coronary artery without angina pectoris; I48.0 Paroxysmal atrial fibrillation; E11.9 Type 2 diabetes mellitus without complications; G47.33 Obstructive sleep apnea (adult) (pediatric); G47.00 Insomnia, unspecified; D72.829 Elevated white blood cell count, unspecified; R68.81 Early satiety; R00.1 Bradycardia, unspecified; E78.00 Pure hypercholesterolemia, unspecified; E83.52 Hypercalcemia; F32.A Depression, unspecified; Z63.4 Disappearance and death of family member; Z79.899 Other long term (current) drug therapy; Z79.01 Long term (current) use of anticoagulants; Z87.891 Personal history of nicotine dependence; Z95.5 Presence of coronary angioplasty implant and graft
CPT/HCPCS: 71045; 74177; 74240; 80048; 80053; 81003; 81015; 82247; 82248; 82962; 83036; 83605; 83690; 83735; 84100; 84145; 85025; 85027; 88305; 88341; 88342; 93005; 96361; 96374; 96375; 99285; Q9967

== ENCOUNTER 2025-03-01 05:35 | Emergency (ER) | payer OTHER, SELFPAY ==
[2025-03-01] VITALS (7 sets, daily range): BP systolic 136–155; BP diastolic 77–83; BMI 31.0
--- NOTE | 2025-03-01 06:31 | ED.GENMED ---
History of Present Illness
General
Chief Complaint: Abdominal Symptoms
Source: patient and records
Exam Limitations: none
Time Seen by Provider: 03/01/25 06:23
Nursing documentation reviewed up to this point in time: agreed with
History of Present Illness
History of Present Illness:
Note:
CHIEF COMPLAINT(S)
Vomiting, inability to eat or drink.
HISTORY OF PRESENT ILLNESS
The patient is an 84-year-old male with a recent hospitalization for esophagitis and duodenitis. The patient was discharged home at approximately 10:00 PM the previous night. Around 9:30 or 10:00 PM, the patient began experiencing vomiting. The
patient reports taking medication as instructed, specifically sucralfate, though there was some confusion regarding administration timing relative to meals. The patient also mentioned issues with obtaining aluminum hydroxide (commonly known as
Mylanta) due to availability problems, but eventually found it and has been taking 30 milliliters. The patient reports discomfort but denies any pain. There is a concern about possible inflammation or narrowing in the gastrointestinal tract based on
previous imaging and endoscopy findings. The patient was previously instructed by Dr. Pina not to take the aluminum salt preparation, despite prior use.
EXTERNAL RECORDS REVIEWED
The patient mentioned having discharge papers indicating the use of aluminum salt preparation.
MEDICATIONS
- Sucralfate
- Aluminum hydroxide (Mylanta), 30 milliliters
PHYSICAL EXAM
General: Alert, no acute distress.
Skin: Warm, dry.
Head: Normocephalic, atraumatic.
Neck: Supple, trachea midline.
Eye, ears, nose, mouth, and throat: Oral mucosa moist.
Cardiovascular: Normal peripheral perfusion, No edema.
Respiratory: Respirations are non-labored.
Gastrointestinal: Abdomen nondistended
Back: Normal range of motion, Normal alignment.
Musculoskeletal: Normal range of motion, normal strength.
Neurological: Alert and oriented to person, place, time, and situation, No focal neurological deficit observed.
Psychiatric: Cooperative, appropriate mood & affect.
PROBLEM LIST
Acute:
- Vomiting
- Esophagitis
- Duodenitis
PLAN
The patient will be evaluated further to determine if additional diagnostic tests like a CT scan or laboratory evaluations are necessary. A review of the patients records will be conducted to provide a comprehensive assessment and care plan.
DIFFERENTIAL DIAGNOSIS
The Differential Diagnosis includes, in no particular order and is not limited to:
1. Gastritis
2. Peptic ulcer disease
3. Gastroesophageal reflux disease (GERD)
4. Gastroparesis
5. Esophageal stricture or narrowing
6. Medication side effects
7. Gastroenteritis
8. Pancreatitis
9. Cholecystitis
10. Intestinal obstruction
Note:
CARE-UPDATE
03/01/25 - 15:18
CT scan of the pelvis indicated a fluid-filled stomach with no evidence of bowel obstruction. The patient reports feeling better and has expressed a desire to be discharged.
Disposition:
SUMMARY OF ENCOUNTER
An 84-year-old male presented to the emergency department with vomiting and inability to eat or drink, following a recent hospitalization for esophagitis and duodenitis. The patient started vomiting again shortly after discharge from the hospital.
Management focused on evaluating his gastrointestinal symptoms, including reviewing his medications and imaging. The CT scan of the pelvis was performed, which indicated a fluid-filled stomach but no evidence of bowel obstruction. After medical
assessment and imaging interpretation, the patients condition improved, and he was deemed stable for discharge.
DISPOSITION
Discharge
PLAN
The patient was provided reassurance and his current management plan was confirmed. Follow up with gastroenterology and primary care is advised.
INDEPENDENT REVIEW OF LABS AND INTERPRETATION OF TESTS
My independent interpretation of the CT scan of the pelvis is a fluid-filled stomach with no signs of bowel obstruction.
PATIENT EDUCATION AND COUNSELING
The patient was advised on the importance of clarifying his medication regimen and understanding of how each medication should be administered. He was informed about recognizing signs of gastrointestinal complications and instructed on when to seek
further medical attention.
FOLLOW-UP INSTRUCTIONS
The patient is advised to follow up with a bead trimmer and his primary care provider. The patient was also advised to return to the emergency department if symptoms worsen or persist.
MEDICATION RECONCILIATION
Sucralfate
Aluminum hydroxide (Mylanta), 30 milliliters
MEDICAL DECISION MAKING
-Complexity of Data Reviewed: Chronic conditions affecting care include recent esophagitis and duodenitis. Considered differential diagnoses include: Gastritis, Peptic ulcer disease, Gastroesophageal reflux disease (GERD), Gastroparesis, Esophageal
stricture or narrowing, Medication side effects, Gastroenteritis, Pancreatitis, Cholecystitis, Intestinal obstruction.
-Data:
Category 1
Non-emergency department records reviewed. External records reviewed: I reviewed the patients discharge papers indicating the use of aluminum salt preparation.
Category 2
My independent interpretation of the CT scan of the pelvis indicates a fluid-filled stomach with no signs of bowel obstruction.
-Risk:
Consideration of Admission/Observation: Escalation of care including admission/observation was considered given the complexity and risk of the patients presenting complaint, exam findings, and/or their underlying comorbidities. However, ultimately I
feel the patient is safe for outpatient management with close follow-up. Reasoning: Work-up reassuring, does not reveal any acute life/organ threatening processes, patients symptoms well controlled upon reevaluation, reexamination is reassuring,
vitals are stable, patient agreeable with discharge, reliable for follow-up.
DIAGNOSIS
1. Nausea and vomiting, unspecified (ICD-10: R11.2)
2. Duodenitis (ICD-10: K29.8)
Past History
Past History
ED Past Medical History: Arrthythmia, CAD, HTN, Hypercholesterolemia and Other (Depression)
ED Past Surgical History: Cardiac (Ablation)
Social History
Tobacco: Non-smoker
Phy Exam
Physical Exam
Physical Exam:
.
Course
Orders/Labs/Results
Orders:
Orders
03/01/25 06:18
Electrocardiogram (*1) Urgent
Reason for Study: Abdominal Pain
Cardiac Monitoring- Treatment ONCE
EKG- Treatment ONCE
IV Insert/Care/Rem.- Treatment PRN
03/01/25 06:31
Iohexol [Omnipaque] See Protocol PO NOW STA
03/01/25 06:33
CT Abd/pel W Iv And Oral Contr Urgent
Comment:
Reason For Exam: n/v, abd pain
03/01/25 06:34
Complete Blood Count/With Diff Urgent
Comprehensive Metabolic Panel Urgent
Lactate Level [Lactic Acid] Urgent
Lipase Urgent
Abnormal Lab Results
03/01/25
06:34
Absolute Neuts (auto) 7.7 H 10^3/uL
(1.4-6.5)
Absolute Monos (auto) 0.7 H 10^3/uL
(0.1-0.6)
Lymphocytes % 16.3 L %
(20.5-51.1)
Glucose 175 H mg/dl
(70-99)
Total Bilirubin 1.9 H mg/dl
(0.2-1.3)
03/01/25 06:34
03/01/25 06:34
Vital Signs
Initial and Last Documented VS:
Initial Vital Signs
Temp Pulse Resp BP Pulse Ox
99.0 F 84 18 155/83 96
03/01/25 05:46 03/01/25 05:46 03/01/25 05:46 03/01/25 05:46 03/01/25 05:46
Last Documented Vital Signs
Temp Pulse Resp BP Pulse Ox
98.5 F 69 10 144/80 96
03/01/25 08:11 03/01/25 10:00 03/01/25 10:00 03/01/25 08:11 03/01/25 10:00
*Pulse Oximetry
SaO2: 96
Oxygen Mode of Delivery: Room air
Patient hypoxic: no
*Critical Care Note
Total Time (30-74mins, 75-104mins- exclusive of procedures): Not Applicable
ED Attending Note
-
Portions of this chart may have been created with voice recognition software.� Occasional wrong word or��sound alike� substitutions may have occurred due to the inherent limitations of voice recognition software.
Discharge Plan
Departure
Patient Disposition: Home (Routine Discharge)
Date of Disposition: 03/01/25
Time of Disposition: 10:16
Patient with high blood pressure during this ER visit?: Yes
Condition: Good
Discharge Problem:
Nausea & vomiting, Abdominal pain, Duodenitis
Instructions: Nausea and Vomiting, Adult (DC), Abdominal Pain, BLOOD PRESSURE
Prescriptions:
No Action
Eliquis 5 mg Tablet
5 mg PO BID
quetiapine 25 mg tablet
25 mg PO HSPRN PRN (Reason: Sleep)
atorvastatin 20 mg tablet
20 mg PO HS
lisinopril 40 mg tablet
40 mg PO DAILY
miconazole nitrate [Miconazorb AF] 2 % Powder
1 applic topical BID Qty: 85 0RF
amlodipine 10 mg Tablet
10 mg PO DAILY Qty: 30 0RF
pantoprazole [Protonix] 40 mg tablet,delayed release (DR/EC)
40 mg PO BID Qty: 60 0RF
sucralfate [Carafate] 1 gram tablet
1 g PO ACHS Qty: 120 0RF
Referrals:
UNKNOWN - PT NOT,INTERVIEWE [Family Provider]
Activity Restrictions/Additional Instructions:
Follow up with primary care and gastroenterology. Return for any concerns.
Interventions
Interventions:
*Risk Screen - Suicide Last Done: 03/01/25 05:46
*General Assessment Last Done: 03/01/25 06:11
*Neglect/Abuse Screening Last Done: 03/01/25 06:11
*ED- Fall Risk Assessment Last Done: 03/01/25 06:11
*ED COVID-19 Vaccine History Last Done: 03/01/25 06:11
*Nursing Disposition Last Done: 03/01/25 10:39
XL-Niteyg-Ylfbjviyhw Assessment Last Done: 03/01/25 06:13
Discharge Date and Time
Discharge Date/Time: 03/01/25 10:39
Print Language: ERITREAN
[2025-03-01 06:47] LABS: Hematocrit 45.5 % (39.0-52.0); Hemoglobin 16.2 g/dL (13.0-18.0); Mean Corp Hgb Conc. 35.6 g/dL (33.0-37.0); Mean Corpuscular Volume 86.0 fL (80.0-94.0); Nucleated Red Blood Cells % 0 % (-); Platelet Count 184 10^3/uL (130-400); Red Cell Dist. Width 12.1 % (11.5-14.5)
[2025-03-01] MEDS: OMNIPAQUE 50 ML PO (06:49)
[2025-03-01 07:00] LABS: ALT (SGPT) 32 U/L (0-50); AST (SGOT) 26 U/L (17-59); Albumin 4.2 g/dl (3.5-5.0); Alkaline Phosphatase 99 U/L (38-126); Blood Urea Nitrogen 16 mg/dl (9-20); Calcium 10.1 mg/dl (8.4-10.2); Carbon Dioxide 24 mmol/L (22-30); Chloride 106 mmol/L (98-107); Estimated Creatinine Clearance 61 ml/min; Glucose 175 mg/dl (70-99); Lipase 279 U/L (23-300); Potassium 4.0 mmol/L (3.5-5.1); Sodium 138 mmol/L (135-145); Total Protein 6.7 g/dl (6.3-8.2); eGFR > 60.00
--- NOTE | 2025-03-01 10:10 | EDRN ---
Dr. Acuña currently at the pts bedside speaking with the pt
== END 2025-03-01 10:39 | disposition home or self-care (01) ==
LOC: EMR 05:35
PROVIDERS: EMERGENCY PHYSICIAN Emergency Medicine
DX: K29.80 Duodenitis without bleeding (principal); R11.2 Nausea with vomiting, unspecified; E78.00 Pure hypercholesterolemia, unspecified; I25.10 Atherosclerotic heart disease of native coronary artery without angina pectoris
CPT/HCPCS: 99284; 74177; 80053; 83605; 83690; 85025; 93005; Q9967